=== PATIENT | male | born 1980 | race Caucasian/White ===

== ENCOUNTER → 2018-09-25 11:53 | Outpatient (CLI) | payer OTHER, SELFPAY ==
--- NOTE | 2018-09-25 11:55 | DI.RAD.S_ITS ---
PROCEDURE: XR CERVICAL SPINE 2V OR 3V INDICATIONS: neck pain TECHNIQUE: 4 view(s) of the cervical spine were acquired. COMPARISON: None. FINDINGS: Bones: No fractures or dislocations to the C7 level. The lateral masses of C1 appear intact on the odontoid view. No suspicious bony lesions. End plate spurring and sclerosis most notably at C5-C6. There is diffuse facet arthropathy. Mild narrowing of the C5-C6 disc space. Mild levocurvature. Soft tissues: No prevertebral soft tissue swelling. IMPRESSION: C5-C6 mild degeneration. Diffuse facet arthropathy. Trace levocurvature. Dictated by: Kody West M.D. on 09/25/2018 at 14:11 Approved by: Kody West M.D. on 09/25/2018 at 14:30
== END ==
PROVIDERS: PCP Family Medicine; Visit Provider Family Medicine
DX: M50.322 Other cervical disc degeneration at C5-C6 level (principal); M47.812 Spondylosis without myelopathy or radiculopathy, cervical region
CPT/HCPCS: 72040

== ENCOUNTER 2019-01-03 13:45 | Outpatient (RCR) | payer OTHER, SELFPAY ==
--- NOTE | 2018-10-30 18:57 | PT.OIE ---
Current Diagnoses Other spondylosis with radiculopathy, cervical region (10/30/18) Provider Visit Care Team Role Provider Type Other Providers Specialty: Address: Phone: Fax: Email: Guilherme Oro MD Attending Provider Physician Primary Care Provider Specialty: Family Practice Address: [address] [place] [address], [phone] Email: [email or web address] Physical Therapy Initial Evaluation PT-OP-A Visit Information Start: 10/29/18 16:25 Freq: Status: Active Protocol: Document 10/30/18 14:37 [facility] (Rec: 10/30/18 18:56 [facility] [id number]) Out-Patient Physical Therapy Visit Information Visit Information Visit Type Initial Evaluation Visit Start Time 14:35 Visit Stop Time 15:15 Total Visit Minutes 40 Visit Number 1/6 Number of POWDER BLENDER Visits 0 PT-OP-B Current Condition Start: 10/29/18 16:25 Freq: Status: Active Protocol: Document 10/30/18 14:37 [facility] (Rec: 10/30/18 15:20 [facility] [id number]) Current Condition History of Current Condition Onset Date Jul 2018 Current Complaints pins and needles in R thumb and post web space History of Current Condition Pt has history of neck pain with radicular pain in R arm in 2009 and did PT and had home traction unit. Pt has had occasional episodes since then that he could resolve with ibuprofen and traction. Pt reports it started back in July and is a little better now, but still has tingling. Pt has pain/tingling in shoulder and back of arm and skips the forearm and ends in the thumb. Pt reports shoulder feels fine now, thumb is the only place with residual pain for the past month. Pt rarely feels the pain in the neck but always feels it down arm. When the entire arm was hurting, he couldn't do a lot of physical activity. Pt reports he has returned to rec activities without aggrevation. Pt does not know why pain started again in July. Pt reports thumb tingling does not inc or dec with any activity. At this time, tingling is 1/10. Pain in arm prior to resolving of symptoms is 8/10. Prior Treatments and Tests Xrays last month here Treatment Goals Patient/Caregiver Goals dec thumb numbness ; home program to dec reoccurances PT-OP-C Subjective Start: 10/29/18 16:25 Freq: Status: Active Protocol: Document 10/30/18 14:37 [facility] (Rec: 10/30/18 15:20 [facility] [id number]) Patient Questionnaires Neck Disability Index NDI Score 6 Neck Disability Index Impairment 1 to 19% Impaired (Score 1-9) PT-OP-J Posture/Palpation/Skin Start: 10/29/18 16:25 Freq: Status: Active Protocol: Document 10/30/18 14:37 [facility] (Rec: 10/30/18 18:56 [facility] [id number]) Posture Evaluation Comments Posture Comments Fwd head & shoulders PT-OP-K Range of Motion Start: 10/29/18 16:25 Freq: Status: Active Protocol: Document 10/30/18 14:37 [facility] (Rec: 10/30/18 15:20 [facility] [id number]) Cervical Spine Range of Motion Cervical Spine Active Degrees Flexion 69 Extension 48 Rotation Left 68 Rotation Right 62 Lateral Flexion Left 45 Lateral Flexion Right 45 PT-OP-L Special Tests Start: 10/29/18 16:25 Freq: Status: Active Protocol: Document 10/30/18 14:37 [facility] (Rec: 10/30/18 15:20 [facility] [id number]) Special Tests Wrist/Hand Special Tests tinnels' Test Results neg Phalens Test Results neg Neural Special Tests- Upper Body Other- 1 Test Results Allens & modified wrights test negative Ulnar Nerve Tension Test Results neg Radial Nerve Tension Test Results neg Median Nerve Tension Test Results neg Upper Limb Tension Test Test Results neg PT-OP-M Strength Start: 10/29/18 16:25 Freq: Status: Active Protocol: Document 10/30/18 14:37 [facility] (Rec: 10/30/18 15:20 [facility] [id number]) Shoulder Strength Shoulder Manual Muscle Testing Right Flexion 4+ Good+ Extension 4+ Good+ Abduction (C5) 4 Good External Rotation 4- Good- Internal Rotation 4+ Good+ Left Reason Not Measured WFL Elbow/Forearm Strength Elbow and Forearm Manual Muscle Testing Left Flexion (C6) 5 Normal Extension (C7) 5 Normal Pronation 5 Normal Supination 5 Normal Right Flexion (C6) 5 Normal Extension (C7) 4+ Good+ Pronation 4 Good Supination 4 Good Comments pain R w/ext, pronation & supination Wrist Strength Wrist Manual Muscle Testing Right Flexion (C7) 4 Good Extension (C6) 4+ Good+ Ulnar Deviation 5 Normal Radial Deviation 4+ Good+ Left Flexion (C7) 5 Normal Extension (C6) 5 Normal Ulnar Deviation 5 Normal Radial Deviation 5 Normal PT-OP-Q Treatments Start: 10/29/18 16:25 Freq: Status: Active Protocol: Document 10/30/18 14:37 [facility] (Rec: 10/30/18 18:56 [facility] [id number]) Therapeutic Exercises Supine Exercises foam roll Supine Exercise Name HAbd, abd, flex Side bilateral Standing Exercises wall posture Standing Exercise Name w//90 ER Side bilateral PT-OP-T Assessment and Plan Start: 10/29/18 16:25 Freq: Status: Active Protocol: Document 10/30/18 14:37 [facility] (Rec: 10/30/18 18:56 [facility] [id number]) Physical Therapy Assessment Rehab Potential Rehabilitation Potential Excellent Evaluation Complexity Number of Personal Factors/Comorbidities 1-2 Number of Body Systems Impaired 4 or More Clinical Presentation at Evaluation Stable Impairments Impairments Pain ROM Sensation Strength Goals strength Short Term Goal (STG) Pt will be indep with HEP STG Duration 11/27/18 Insurance Checker Goal (LTG) Pt will have equal strength on R as L side for enitre UE, allowing greater ease with typical housework. LTG Duration 12/28/18 posture Insurance Checker Goal (LTG) Pt will present with good posture without cueing. LTG Duration 12/28/18 Assessment Summary Assessment Pt presents with paresthesia to R thumb with likely etiology from cervical radiculopathy based on prior history. At this time, pt does not have positive nerve tension tests, spurling test, and there are no movements that inc the pins & needle sensation. It is likely strength is reduced in R side d/t neural injury and pt would benefit from PT for strengthening, posture & neck ROM. Physical Therapy Plan Frequency and Duration Frequency of Treatment 1-2x/wk Duration of Treatment 2 months Plan of Care Start Date 10/30/18 Plan of Care End Date 12/28/18 Therapeutic Interventions Therapeutic Interventions Home Exercise Program Joint Mobilizations Manual Therapy Neuromuscular Re-education Self-Care/Home Management Soft Tissue Mobilization Taping Therapeutic Activities Therapeutic Exercises Modalities Cold Pack/Ice Massage Electric Stimulation Hot Packs Traction- Mechanical Ultrasound Next Visit Focus/Plan Next Note Type Treatment Note Next Visit Plan hand strengthening exercises, shoulder ext & ER ther ex, assess soft tissue mobility along median n path
--- NOTE | 2018-10-30 18:57 | PT.OPPOC ---
Current Diagnoses Other spondylosis with radiculopathy, cervical region (10/30/18) Provider Visit Care Team Role Provider Type Other Providers Specialty: Address: Phone: Fax: Email: Guilherme Oro MD Attending Provider Physician Primary Care Provider Specialty: Family Practice Address: [address] [place] [address], [address] Email: [email or web address] Plan Of Care PT-OP-T Assessment and Plan Start: 10/29/18 16:25 Freq: Status: Active Protocol: Document 10/30/18 14:37 [facility] (Rec: 10/30/18 18:56 [facility] [id number]) Physical Therapy Assessment Rehab Potential Rehabilitation Potential Excellent Evaluation Complexity Number of Personal Factors/Comorbidities 1-2 Number of Body Systems Impaired 4 or More Clinical Presentation at Evaluation Stable Impairments Impairments Pain ROM Sensation Strength Goals strength Short Term Goal (STG) Pt will be indep with HEP STG Duration 11/27/18 Penitentiary Goal (LTG) Pt will have equal strength on R as L side for enitre UE, allowing greater ease with typical housework. LTG Duration 12/28/18 posture Supervisor Typesetting Goal (LTG) Pt will present with good posture without cueing. LTG Duration 12/28/18 Assessment Summary Assessment Pt presents with paresthesia to R thumb with likely etiology from cervical radiculopathy based on prior history. At this time, pt does not have positive nerve tension tests, spurling test, and there are no movements that inc the pins & needle sensation. It is likely strength is reduced in R side d/t neural injury and pt would benefit from PT for strengthening, posture & neck ROM. Physical Therapy Plan Frequency and Duration Frequency of Treatment 1-2x/wk Duration of Treatment 2 months Plan of Care Start Date 10/30/18 Plan of Care End Date 12/28/18 Therapeutic Interventions Therapeutic Interventions Home Exercise Program Joint Mobilizations Manual Therapy Neuromuscular Re-education Self-Care/Home Management Soft Tissue Mobilization Taping Therapeutic Activities Therapeutic Exercises Modalities Cold Pack/Ice Massage Electric Stimulation Hot Packs Traction- Mechanical Ultrasound Next Visit Focus/Plan Next Note Type Treatment Note Next Visit Plan hand strengthening exercises, shoulder ext & ER ther ex, assess soft tissue mobility along median n path Plan of Care Dates Plan of Care Start Date 10/30/18 Plan of Care End Date 12/28/18 Please Sign and Return: I have reviewed this Plan of Care and certify that the skilled therapy services above are required to meet the patient?s needs. Physician Signature Date Printed Name and Credentials Clinical Instructor Signature Printed Name and Credentials
--- NOTE | 2019-01-03 14:23 | PT.OTN ---
Current Diagnoses Other spondylosis with radiculopathy, cervical region (01/03/19) Physical Therapy Treatment Note PT-OP-A Visit Information Start: 10/29/18 16:25 Freq: Status: Active Protocol: Document 01/03/19 13:45 [facility] (Rec: 01/03/19 14:23 [facility] [id number]) Out-Patient Physical Therapy Visit Information Visit Information Visit Type Treatment Note Visit Start Time 13:45 Visit Stop Time 14:15 Total Visit Minutes 30 Visit Number 2 Evaluation Information Evaluation Date 10/30/18 PT-OP-B Current Condition Start: 10/29/18 16:25 Freq: Status: Active Protocol: Document 10/30/18 14:37 [facility] (Rec: 10/30/18 15:20 [facility] [id number]) Current Condition History of Current Condition Onset Date Jul 2018 Current Complaints pins and needles in R thumb and post web space History of Current Condition Pt has history of neck pain with radicular pain in R arm in 2009 and did PT and had home traction unit. Pt has had occasional episodes since then that he could resolve with ibuprofen and traction. Pt reports it started back in July and is a little better now, but still has tingling. Pt has pain/tingling in shoulder and back of arm and skips the forearm and ends in the thumb. Pt reports shoulder feels fine now, thumb is the only place with residual pain for the past month. Pt rarely feels the pain in the neck but always feels it down arm. When the entire arm was hurting, he couldn't do a lot of physical activity. Pt reports he has returned to rec activities without aggrevation. Pt does not know why pain started again in July. Pt reports thumb tingling does not inc or dec with any activity. At this time, tingling is 1/10. Pain in arm prior to resolving of symptoms is 8/10. Prior Treatments and Tests Xrays last month here Treatment Goals Patient/Caregiver Goals dec thumb numbness ; home program to dec reoccurances PT-OP-C Subjective Start: 10/29/18 16:25 Freq: Status: Active Protocol: Document 01/03/19 13:45 [facility] (Rec: 01/03/19 14:23 [facility] [id number]) OP-PT Subjective Patient Comments Patient Comments Pt reports he is doing very well with his HEP, and has not had any flare-ups since his evaluation. Pt is interested in obtaining new HEP exercises . PT-OP-J Posture/Palpation/Skin Start: 10/29/18 16:25 Freq: Status: Active Protocol: Document 10/30/18 14:37 [facility] (Rec: 10/30/18 18:56 [facility] [id number]) Posture Evaluation Comments Posture Comments Fwd head & shoulders PT-OP-K Range of Motion Start: 10/29/18 16:25 Freq: Status: Active Protocol: Document 01/03/19 13:45 [facility] (Rec: 01/03/19 14:15 [facility] [id number]) Cervical Spine Range of Motion Cervical Spine Active Degrees Flexion 69 Extension 48 Rotation Left 74 Rotation Right 69 Lateral Flexion Left 45 Lateral Flexion Right 45 PT-OP-L Special Tests Start: 10/29/18 16:25 Freq: Status: Active Protocol: Document 10/30/18 14:37 [facility] (Rec: 10/30/18 15:20 [facility] [id number]) Special Tests Wrist/Hand Special Tests tinnels' Test Results neg Phalens Test Results neg Neural Special Tests- Upper Body Other- 1 Test Results Allens & modified wrights test negative Ulnar Nerve Tension Test Results neg Radial Nerve Tension Test Results neg Median Nerve Tension Test Results neg Upper Limb Tension Test Test Results neg PT-OP-M Strength Start: 10/29/18 16:25 Freq: Status: Active Protocol: Document 01/03/19 13:45 [facility] (Rec: 01/03/19 14:15 [facility] [id number]) Hand Shellfish Processing Laborer/Pinch Strength Hand Dominance Hand Dominance Mixed Hand Strength Right Shellfish Processing Laborer (lbs) 60 Left Shellfish Processing Laborer (lbs) 100 PT-OP-Q Treatments Start: 10/29/18 16:25 Freq: Status: Active Protocol: Document 01/03/19 13:45 [facility] (Rec: 01/03/19 14:23 [facility] [id number]) Therapeutic Exercises Supine Exercises Chin tuck Supine Exercise Name Chin Tuck Sitting Exercises Shellfish Processing Laborer Strengthening Sitting Exercise Name Full anger control counselor, individual finger anger control counselor, finger extension Resistance Blue Putty Scalene Stretch Sitting Exercise Name Mid-scalene stretch Upper Trap stretch Sitting Exercise Name Upper Trap stretch Standing Exercises Corner Stretch Standing Exercise Name Corner pec stretch PT-OP-T Assessment and Plan Start: 10/29/18 16:25 Freq: Status: Active Protocol: Document 01/03/19 13:45 [facility] (Rec: 01/03/19 14:23 [facility] [id number]) Physical Therapy Assessment Impairments Impairments Pain ROM Sensation Strength Goals strength Short Term Goal (STG) Pt will be indep with HEP STG Duration Met Policy Writer Sales Goal (LTG) Pt will have equal strength on R as L side for enitre UE, allowing greater ease with typical housework. LTG Duration 12/28/18 posture Policy Writer Sales Goal (LTG) Pt will present with good posture without cueing. LTG Duration Met Assessment Summary Assessment Pt presents today with continued R anger control counselor weakness, however still has minimal other positive tests or measures. Pt is willing to advance his HEP and continue independently, as there is not much indication for further skilled therapy at this time. Pt will be discharged, and will require a new referral in order to return for further appointments. Physical Therapy Plan Frequency and Duration Duration of Treatment 1 day Plan of Care Start Date 01/03/19 Plan of Care End Date 01/04/19 Therapeutic Interventions Therapeutic Interventions Home Exercise Program Joint Mobilizations Manual Therapy Neuromuscular Re-education Self-Care/Home Management Soft Tissue Mobilization Taping Therapeutic Activities Therapeutic Exercises Modalities Cold Pack/Ice Massage Electric Stimulation Hot Packs Traction- Mechanical Ultrasound Discharge Physical Therapy Discharge Comments Pt continuing HEP independently. Next Visit Focus/Plan Next Note Type Discharge Summary
--- NOTE | 2019-01-03 14:24 | PT.OPPOC ---
Current Diagnoses Other spondylosis with radiculopathy, cervical region (01/03/19) Provider Visit Care Team Role Provider Type Other Providers Specialty: Address: Phone: Fax: Email: Guilherme Oro MD Attending Provider Physician Primary Care Provider Specialty: Family Practice Address: [address] [place] [address], [phone] Email: [email or web address] Plan Of Care PT-OP-T Assessment and Plan Start: 10/29/18 16:25 Freq: Status: Active Protocol: Document 01/03/19 13:45 [facility] (Rec: 01/03/19 14:23 [facility] [id number]) Physical Therapy Assessment Impairments Impairments Pain ROM Sensation Strength Goals strength Short Term Goal (STG) Pt will be indep with HEP STG Duration Met Halfway Goal (LTG) Pt will have equal strength on R as L side for enitre UE, allowing greater ease with typical housework. LTG Duration 12/28/18 posture Halfway Goal (LTG) Pt will present with good posture without cueing. LTG Duration Met Assessment Summary Assessment Pt presents today with continued R fnp weakness, however still has minimal other positive tests or measures. Pt is willing to advance his HEP and continue independently, as there is not much indication for further skilled therapy at this time. Pt will be discharged, and will require a new referral in order to return for further appointments. Physical Therapy Plan Frequency and Duration Duration of Treatment 1 day Plan of Care Start Date 01/03/19 Plan of Care End Date 01/04/19 Therapeutic Interventions Therapeutic Interventions Home Exercise Program Joint Mobilizations Manual Therapy Neuromuscular Re-education Self-Care/Home Management Soft Tissue Mobilization Taping Therapeutic Activities Therapeutic Exercises Modalities Cold Pack/Ice Massage Electric Stimulation Hot Packs Traction- Mechanical Ultrasound Discharge Physical Therapy Discharge Comments Pt continuing HEP independently. Next Visit Focus/Plan Next Note Type Discharge Summary Plan of Care Dates Plan of Care Start Date 01/03/19 Plan of Care End Date 01/04/19 Please Sign and Return: I have reviewed this Plan of Care and certify that the skilled therapy services above are required to meet the patient?s needs. Physician Signature Date Printed Name and Credentials Clinical Instructor Signature Printed Name and Credentials
== END 2019-01-04 12:12 ==
LOC: PHYS 13:45
PROVIDERS: PCP Family Medicine; Visit Provider Family Medicine
DX: M47.22 Other spondylosis with radiculopathy, cervical region (principal)
CPT/HCPCS: 97110; 97140; 97161

== ENCOUNTER → 2020-03-23 10:53 | Outpatient (CLI) | payer OTHER, SELFPAY ==
[2020-03-23 11:41] LABS: Add Manual Diff / Slide Review NO; Basophils Absolute Auto 100 /uL (0-100); Basophils Percent Auto 0.6 % (0-2); Eosinophils Absolute Auto 300 /uL (0-450); Eosinophils Percent Auto 2.7 % (2-4); Hematocrit 46.2 % (41-53); Hemoglobin 16.4 g/dL (13.5-17.5); Lymphocytes Absolute Auto 3900 /uL (1100-4500); Lymphocytes Percent Auto 30.2 % (25-40); Mean Corpuscular HGB Conc 35.5 % (30-36); Mean Corpuscular Hemoglobin 29.5 PG (26-34); Monocytes Absolute Auto 1200 /uL (0-900); Monocytes Percent Auto 9.6 % (3-14); Neutrophils Absolute Auto 7400 /uL (1500-7000); Neutrophils Percent Auto 56.9 % (50-75); Platelet Count 221 X10^3/uL (150-400); Red Blood Cell Count 5.57 X10^6/uL (4.5-5.9); Red Cell Distribution Width 13.5 % (11.6-14.8)
[2020-03-23 11:52] LABS: Alanine Aminotransferase 35 IU/L (<50); Albumin 4.9 g/dL (3.5-5.0); Albumin Globulin Ratio 1.6 (1.0-2.8); Alkaline Phosphatase 69 U/L (38-126); Aspartate Aminotransferase 34 IU/L (17-59); BUN Creatinine Ratio 15.2 (6-22); Bilirubin Total 1.3 mg/dL (0.2-1.3); Blood Urea Nitrogen 14 mg/dL (9-20); Calcium 9.9 mg/dL (8.4-10.2); Carbon Dioxide 28 mmol/L (22-32); Chloride 103 mmol/L (98-107); Cholesterol 175 mg/dL (140-199); Estimated Glomerular Filt Rate > 60.0 mL/min (>60); Glucose 103 mg/dL (70-100); HDL Cholesterol 40 mg/dL (40-60); HEMOLYSIS < 15 (0-50); LDL Cholesterol Calculated 99 mg/dL (<100); Potassium 4.1 mmol/L (3.4-5.1); Sodium 141 mmol/L (137-145); Total Protein 7.9 g/dL (6.3-8.2); Triglycerides 178 mg/dL (35-150)
[2020-03-23 12:38] LABS: TSH w/ Reflex to FT4 2.63 uIU/mL (0.47-4.68)
== END ==
PROVIDERS: PCP Family Medicine; Referring Provider Family Medicine; Visit Provider Family Medicine
DX: F41.9 Anxiety disorder, unspecified (principal); I10 Essential (primary) hypertension
CPT/HCPCS: 36415; 80053; 80061; 84443; 85025

== ENCOUNTER 2021-11-23 06:52 | Emergency (ER) | payer OTHER, MEDICAID, SELFPAY ==
[2021-11-23] VITALS (46 sets, daily range): BP systolic 116–162; BP diastolic 61–103; PULSE 96–150; RESP 14–24; TEMP 35–36.3; O2SAT 90–99
--- NOTE | 2021-11-23 06:50 | DI.CT.S_ITS ---
PROCEDURE: CT ANGIO CHEST ABDOMEN PELVIS INDICATIONS: fall, head injury, leg pain, altered yesterday also TECHNIQUE: Precontrast 5 mm thick sections acquired from the lung apices to the iliac crests. After the administration of intravenous contrast, 2.5 mm thick sections again acquired from the lung apices to the iliac crests. Maximum intensity projection (MIP) oblique sagittal and coronal reformats were then acquired. For radiation dose reduction, the following was used: automated exposure control. COMPARISON: None. FINDINGS: Image quality: Excellent. AORTA: No areas of hemodynamically significant stenosis, vascular occlusion, aneurysmal dilation or dissection. CHEST: Lungs and pleura: No acute airspace opacities. No pleural effusions or pneumothorax. Central and peripheral airways are patent and normal in caliber. Mediastinum: Heart size is normal. No pericardial effusion. No mediastinal or hilar adenopathy by size criteria. Central pulmonary arteries are normal in size. Esophagus is normal in caliber. No hiatal hernias. Bones and chest wall: No axillary adenopathy by size criteria. Thyroid gland is unremarkable . No suspicious bony lesions. No vertebral body compression fractures. ABDOMEN: Vasculature: Celiac trunk and mesenteric arteries are patent. Renal arteries are also patent. Solid organs: Liver is enlarged measuring 20.1 cm, with steatosis. Gallbladder is unremarkable . Biliary system is non dilated. Pancreas enhances normally. Spleen is normal in size and enhancement. No adrenal nodules. Both kidneys are normal in size and enhancement, without hydronephrosis. Peritoneum and bowel: No free fluid or air. Bowel loops are normal in caliber and wall thickness. Colonic diverticula are present without associated inflammatory change. Mild hiatal hernia. Nodes and vessels: No retroperitoneal or mesenteric adenopathy by size criteria. Inferior vena cava is normal in morphology. Miscellaneous: Trace fat containing ventral hernia. PELVIS: Genitourinary: Bladder wall thickness is normal. Miscellaneous: No inguinal hernias or adenopathy. No ventral hernias. Bones: No suspicious bony lesions. There is a compression fracture measuring approximately 50% at L1. Fracture lucencies extend into the anterior, middle and posterior 3rd of the vertebral body. There is mild retropulsion of the posterior fragment causing severe spinal stenosis. In addition, there is a right transverse process fracture at this level. In addition, there is nondisplaced irregularity the right posterior 12th rib. IMPRESSION: Aorta demonstrates no areas of aneurysmal dilation, dissection or hemodynamically significant stenosis. Diverticulosis. Hepatomegaly with steatosis. 50% compression deformity at L1 including fractures within the anterior, middle and posterior 3rd of the vertebral body, as well as right transverse process fracture. There is mild retropulsion of the posterior aspect of the vertebral body causing severe spinal stenosis. Nondisplaced irregularity of posterior right 12th rib suspicious for fracture. Dictated by: Jillian Hammer M.D. on 11/23/2021 at 7:35 Approved by: Jillian Hammer M.D. on 11/23/2021 at 7:44
--- NOTE | 2021-11-23 06:51 | DI.CT.S_ITS ---
PROCEDURE: CT HEAD/BRAIN WO CON INDICATIONS: Trauma TECHNIQUE: Noncontrast 4.5 mm thick angled axial sections acquired from the foramen magnum to the vertex, with coronal and sagittal reformats. For radiation dose reduction, the following was used: automated exposure control, adjustment of mA and/or kV according to patient size. COMPARISON: None. FINDINGS: Image quality: Image degraded by moderate patient motion artifact. CSF spaces: Basal cisterns are patent. No extra-axial fluid collections. Ventricles are normal in size and shape. Brain: No midline shift. No intracranial masses or hemorrhage. Cruz-white matter interface is normal. Skull and face: Calvarium and visualized facial bones are intact, without suspicious lesions. Sinuses: Visualized sinuses and mastoids are clear. IMPRESSION: CT head without acute intracranial abnormalities. No acute calvarial fracture seen. Dictated by: Mingo Maria M.D. on 11/23/2021 at 7:44 Approved by: Mingo Maria M.D. on 11/23/2021 at 7:46
[2021-11-23] MEDS: MORPHINE 4 MG/ML INJ (07:00)
[2021-11-23 07:02] LABS: Add Manual Diff / Slide Review NO; Basophils Absolute Auto 0 /uL (0-100); Basophils Percent Auto 0.2 % (0-2); Eosinophils Absolute Auto 300 /uL (0-450); Eosinophils Percent Auto 1.2 % (2-4); Hematocrit 49.9 % (41-53); Hemoglobin 17.1 g/dL (13.5-17.5); Lymphocytes Absolute Auto 7700 /uL (1100-4500); Lymphocytes Percent Auto 35.6 % (25-40); Mean Corpuscular HGB Conc 34.2 % (30-36); Mean Corpuscular Hemoglobin 28.9 PG (26-34); Mean Corpuscular Volume 84.8 fL (80-100); Monocytes Absolute Auto 2200 /uL (0-900); Monocytes Percent Auto 10.3 % (3-14); Neutrophils Absolute Auto 11400 /uL (1500-7000); Neutrophils Percent Auto 52.7 % (50-75); Platelet Count 319 X10^3/uL (150-400); Red Blood Cell Count 5.89 X10^6/uL (4.5-5.9); Red Cell Distribution Width 14.2 % (11.6-14.8); White Blood Cell Count 21.6 X10^3/uL (4.5-11.0)
[2021-11-23] MEDS: KETAMINE 50 MG/5 ML *SYRINGE 200 MG IV (07:08)
[2021-11-23 07:10] LABS: Prothrombin Time 11.3 SECONDS (10.1-12.7)
[2021-11-23 07:13] LABS: PTT Partial Thromboplastin Tim 29 SECONDS (26.4-36.2)
[2021-11-23] MEDS: MIDAZOLAM 5 MG/ML VIAL (07:15)
[2021-11-23 07:16] LABS: Alanine Aminotransferase 42 IU/L (<50); Albumin 5.2 g/dL (3.5-5.0); Albumin Globulin Ratio 1.6 (1.0-2.8); Alkaline Phosphatase 71 U/L (38-126); Aspartate Aminotransferase 51 IU/L (17-59); BUN Creatinine Ratio 11.6 (6-22); Bilirubin Total 1.2 mg/dL (0.2-1.3); Blood Urea Nitrogen 13 mg/dL (9-20); Calcium 9.1 mg/dL (8.4-10.2); Carbon Dioxide 20 mmol/L (22-32); Chloride 105 mmol/L (98-107); Creatine Kinase 152 U/L (55-170); Estimated Glomerular Filt Rate > 60.0 mL/min (>60); Ethanol (ETOH) < 10 mg/dL; Globulin 3.2 g/dL (1.7-4.1); Glucose 139 mg/dL (70-100); Lipase 141 U/L (23-300); Potassium 4.1 mmol/L (3.4-5.1); Sodium 142 mmol/L (137-145); Total Protein 8.4 g/dL (6.3-8.2)
[2021-11-23 07:18] LABS: Lactate (Lactic Acid) 8.2 mmol/L (0.7-2.1)
--- NOTE | 2021-11-23 07:20 | ED.FALL ---
HPI - Fall General Chief Complaint: Fall Stated Complaint: fall with head injury Time Seen by Provider: 11/23/21 07:19 Source: EMS Mode of arrival: EMS History of Present Illness HPI Narrative: Patient is a 41-year-old healthy male presents with altered mental status. according to they just got back from a trip from [place] on November 11. He has been acting normal. 2 days ago he woke up he did not know where he was if he had a job are what was happening he was very confused. It was a brief moment but then he was back to normal. She said yesterday was a normal day. He has not been ill. This morning he woke up when she heard him fall in the shower. He was unresponsive unable to get to him because he was blocking the shower door. She called EMS. He became combative with EMS. EMS gave him fentanyl 50, ketamine 25,versed, he was able to calm down some however now in the emergency department grabbing his legs saying that his legs hurt. He is somewhat redirectable. Sweating diffusely, extremely agitated. Unable to provide any history. Related Data Home Medications Medication Instructions Recorded Confirmed No Known Home Medications 03/23/20 03/23/20 Allergies Allergy/AdvReac Type Severity Reaction Status Date / Time kiwi [KIWI] Allergy Severe THROAT Verified 03/23/20 10:11 SWELLS UP, ALMOST Penicillins [PENICILLINS] Allergy Severe HIVES Verified 03/23/20 10:11 Review of Systems Review of Systems ROS Unobtainable: Unobtainable due to medical condition Patient History Social History marital status: Smoking Status: Never smoker alcohol intake: current substance use type: does not use Smoking Status: Never smoker Exam Initial Vital Signs Initial Vital Signs: Vital Signs Pulse Rate 150 H 11/23/21 07:00 Respiratory Rate 22 11/23/21 07:00 Blood Pressure 146/96 H 11/23/21 07:00 Pulse Oximetry 96 11/23/21 07:00 GENERAL: Diaphoretic agitated male and grapping his legs HEENT: Head atraumatic,EOMI, pupils reactive, face symmetric, dry mucous membranes, minimal tongue breathing no laceration CARDIOVASCULAR: Regular rate and rhythm without murmurs, rubs or gallops. RESPIRATORY: Breath sounds equal bilaterally, no wheezes rales or rhonchi. ABDOMEN: Soft, nontender. Normoactive bowel sounds all 4 quadrants. No guarding or rebound. EXTREMITIES: Normal range of motion, no clubbing or edema. Neurovascularly intact. Calves are soft. Strong bilateral distal tibial pulses no obvious bony deformity NEUROLOGICAL: Moving all extremities face symmetric SKIN: Diaphoretic with petechiae around neck and chest Procedures Intubation Time out performed: Yes sedative: Etomidate Mg Given: 20 paralytic: Succinylcholine Mg Given: 150 Laryngoscope: other (glide scope) ET Tube Size: 7.5 Tube Secured Depth (cm): 26 Tube Secured Location: lips Tube Placement Confirmation: Visualized tube passing through cords, Equal breath sounds bilaterally, No breath sounds over epigastrium, Confirmation by capnometry and Chest Xray Patient Tolerated Procedure: Well and No complications Course Orders Ordered: ED Orders 11/23/21 06:50 CT angio chest abdomen pelvis Stat EKG-12 Lead Stat 11/23/21 06:51 CT head/brain wo con Stat 11/23/21 06:59 Complete Blood Count AUTO DIFF Stat Comprehensive Metabolic Panel Stat Ethanol (ETOH) Stat Lactate (Lactic Acid) Urgent Lipase Stat Partial Thromboplastin Time Stat Prothrombin Time INR Stat Troponin & CK Cardiac Panel Stat 11/23/21 07:25 Acetaminophen Stat Procalcitonin Stat Salicylate Stat 11/23/21 07:30 Prolactin Stat 11/23/21 07:31 US periph venous low extrem bi Stat 11/23/21 07:36 CT cervical spine wo con Stat 11/23/21 07:39 COVID19 -Nasal swab/Pre-Proc Stat 11/23/21 07:48 Blood Culture Stat 11/23/21 08:01 UA Complete [Urinalysis and Microscopic] Stat Urine Drug Screen, Rapid Stat 11/23/21 08:47 XR chest 1V Stat 11/23/21 08:55 Ventilator Order 11/23/21 09:40 ABG [Arterial Blood Gas] Stat Fentanyl (Fentanyl 100 Mcg/2 Ml Inj) 50 mcg IV Q30MIN PRN PRN Reason: agitation / pain Last Admin: 11/23/21 10:00 Dose: 50 mcg Documented by: Admin: 11/23/21 09:11 Dose: 50 mcg Documented by: JUAN Midazolam HCl 50 mg/ Dextrose 250 mls @ 11 mls/hr IV TITRATE [place]; Protocol Last Titration: 11/23/21 10:30 Dose: 0.05 mg/kg/hr, 27.5 mls/hr Documented by: Titration: 11/23/21 09:31 Dose: 0.05 mg/kg/hr, 27.5 mls/hr Documented by: Admin: 11/23/21 09:22 Dose: 0.02 mg/kg/hr, 11 mls/hr Documented by: JUAN Fentanyl 1,000 mcg/ Dextrose 250 mls @ 19.25 mls/hr IV TITRATE [place]; Protocol Last Titration: 11/23/21 10:31 Dose: 1 mcg/kg/hr, 27.5 mls/hr Documented by: Titration: 11/23/21 09:32 Dose: 1 mcg/kg/hr, 27.5 mls/hr Documented by: Admin: 11/23/21 09:26 Dose: 0.7 mcg/kg/hr, 19.25 mls/hr Documented by: JUAN Fentanyl 1,000 mcg/ Dextrose 270 mls @ 29.7 mls/hr IV TITRATE [place]; Protocol Last Admin: 11/23/21 09:24 Dose: Not Given Documented by: JUAN Midazolam HCl 50 mg/ Dextrose 250 mls @ 27.5 mls/hr IV TITRATE [place]; Protocol Last Admin: 11/23/21 09:27 Dose: Not Given Documented by: JUAN Sodium Chloride (Normal Saline 0.9%) 1,000 mls @ 150 mls/hr IV BOLUS ONE Stop: 11/23/21 16:13 Last Admin: 11/23/21 09:41 Dose: 150 mls/hr Documented by: JUAN Discontinued Medications Etomidate (Etomidate 2 Mg/Ml 10 Ml Vial) 20 mg IV NOW ONE Stop: 11/23/21 08:44 Last Admin: 11/23/21 08:43 Dose: 20 mg Documented by: JUAN Hydromorphone HCl (Hydromorphone 1 Mg Inj) 1 mg IV NOW ONE Stop: 11/23/21 08:17 Last Admin: 11/23/21 08:20 Dose: 1 mg Documented by: JUAN Sodium Chloride (Normal Saline 0.9%) 1,000 mls @ 1,000 mls/hr IV BOLUS ONE Stop: 11/23/21 08:18 Last Infusion: 11/23/21 09:33 Dose: 0 mls/hr Documented by: Admin: 11/23/21 07:23 Dose: 1,000 mls/hr Documented by: DINA Levetiracetam 1,000 mg/ Sodium (Chloride) 110 mls @ 440 mls/hr IV NOW ONE Stop: 11/23/21 08:00 Last Infusion: 11/23/21 08:27 Dose: 0 mls/hr Documented by: Admin: 11/23/21 08:07 Dose: 440 mls/hr Documented by: JUAN Sodium Chloride (Normal Saline 0.9%) 1,000 mls @ 1,000 mls/hr IV BOLUS ONE Stop: 11/23/21 08:59 Last Infusion: 11/23/21 10:30 Dose: 0 mls/hr Documented by: Admin: 11/23/21 09:16 Dose: 1,000 mls/hr Documented by: JUAN Ceftriaxone Sodium 2,000 mg/ (Sodium Chloride) 100 mls @ 200 mls/hr IV NOW ONE Stop: 11/23/21 09:15 Last Infusion: 11/23/21 10:15 Dose: 0 mls/hr Documented by: Admin: 11/23/21 09:43 Dose: 200 mls/hr Documented by: JUAN Acyclovir 1,000 mg/ Dextrose 250 mls @ 250 mls/hr IV NOW ONE Stop: 11/23/21 09:15 Last Infusion: 11/23/21 10:31 Dose: 0 mls/hr Documented by: Admin: 11/23/21 09:28 Dose: 250 mls/hr Documented by: JUAN Lorazepam (Lorazepam 2 Mg/Ml Inj) 2 mg IV NOW ONE Stop: 11/23/21 07:44 Last Admin: 11/23/21 07:43 Dose: 2 mg Documented by: JUAN Midazolam HCl (Midazolam 5 Mg/Ml Vial) 10 mg IV NOW ONE Stop: 11/23/21 08:18 Last Admin: 11/23/21 08:57 Dose: 10 mg Documented by: JUAN Succinylcholine Chloride (Succinylcholine 200 Mg/10 Ml Vial) 150 mg IV NOW ONE Stop: 11/23/21 08:47 Last Admin: 11/23/21 08:46 Dose: 150 mg Documented by: JUAN Vital Signs Vital signs: Vital Signs - 8 hr 11/23/21 07:00 11/23/21 07:18 11/23/21 07:22 Temperature Pulse Rate 150 H 100 H 101 H Respiratory Rate 22 Blood Pressure 146/96 H 128/89 Pulse Oximetry 96 90 L 11/23/21 07:30 11/23/21 07:35 11/23/21 07:40 Temperature Pulse Rate 96 H 104 H 105 H Respiratory Rate 24 Blood Pressure 128/93 H Pulse Oximetry 92 94 96 11/23/21 07:45 11/23/21 07:50 11/23/21 07:55 Temperature Pulse Rate 110 H 107 H 108 H Respiratory Rate Blood Pressure Pulse Oximetry 95 97 96 11/23/21 08:00 11/23/21 08:01 11/23/21 08:05 Temperature Pulse Rate 103 H 105 H 104 H Respiratory Rate Blood Pressure 159/76 H 162/78 H Pulse Oximetry 94 96 96 11/23/21 08:10 11/23/21 08:15 11/23/21 08:20 Temperature Pulse Rate 104 H 109 H 114 H Respiratory Rate Blood Pressure Pulse Oximetry 97 96 97 11/23/21 08:25 11/23/21 08:30 11/23/21 08:31 Temperature Pulse Rate 101 H 108 H 105 H Respiratory Rate Blood Pressure 157/100 H Pulse Oximetry 95 97 96 11/23/21 08:35 11/23/21 08:40 11/23/21 08:45 Temperature Pulse Rate 113 H 106 H 105 H Respiratory Rate Blood Pressure 148/102 H 140/84 130/78 Pulse Oximetry 97 96 98 11/23/21 08:48 11/23/21 08:49 11/23/21 08:50 Temperature Pulse Rate 107 H 108 H 108 H Respiratory Rate Blood Pressure 134/85 140/87 136/84 Pulse Oximetry 97 98 99 11/23/21 08:55 11/23/21 08:58 11/23/21 09:00 Temperature Pulse Rate 107 H 109 H 105 H Respiratory Rate Blood Pressure 138/81 161/103 H Pulse Oximetry 98 98 98 11/23/21 09:01 11/23/21 09:05 11/23/21 09:10 Temperature 95.0 F L Pulse Rate 106 H 105 H 107 H Respiratory Rate Blood Pressure 148/86 H 145/86 H 118/84 Pulse Oximetry 98 98 98 11/23/21 09:15 11/23/21 09:20 11/23/21 09:25 Temperature 96.4 F L 97.0 F L 97.2 F L Pulse Rate 106 H 106 H 105 H Respiratory Rate Blood Pressure 126/87 129/86 123/81 Pulse Oximetry 97 97 97 11/23/21 09:30 11/23/21 09:35 11/23/21 09:40 Temperature 97.3 F L 97.3 F L 97.3 F L Pulse Rate 104 H 104 H 105 H Respiratory Rate 23 18 Blood Pressure 128/83 127/81 Pulse Oximetry 96 95 94 11/23/21 09:45 11/23/21 09:50 11/23/21 09:55 Temperature 97.3 F L 97.3 F L 97.3 F L Pulse Rate 108 H 110 H 109 H Respiratory Rate 16 16 14 Blood Pressure 130/84 120/76 116/75 Pulse Oximetry 94 95 95 11/23/21 10:00 11/23/21 10:05 11/23/21 10:10 Temperature 97.3 F L 97.3 F L 97.2 F L Pulse Rate 111 H 114 H 115 H Respiratory Rate 15 16 16 Blood Pressure 117/61 125/67 Pulse Oximetry 95 95 11/23/21 10:15 11/23/21 10:20 11/23/21 10:25 Temperature 97.2 F L 97.2 F L 97.0 F L Pulse Rate 116 H 117 H Respiratory Rate 16 16 Blood Pressure Pulse Oximetry 11/23/21 10:30 Temperature 97.2 F L Pulse Rate Respiratory Rate Blood Pressure Pulse Oximetry MDM - Fall Lab Data Result diagrams: 11/23/21 06:59 11/23/21 06:59 Labs: Lab Results 11/23/21 11/23/21 11/23/21 Range/Units 06:59 06:59 06:59 WBC 21.6 H (4.5-11.0) X10^3/uL RBC 5.89 (4.5-5.9) X10^6/uL Hgb 17.1 (13.5-17.5) g/dL Hct 49.9 (41-53) % MCV 84.8 (80-100) fL MCH 28.9 (26-34) PG MCHC 34.2 (30-36) % RDW 14.2 (11.6-14.8) % Plt Count 319 (150-400) X10^3/uL Neut % (Auto) 52.7 (50-75) % Lymph % (Auto) 35.6 (25-40) % [place] % (Auto) 10.3 (3-14) % Eos % (Auto) 1.2 L (2-4) % Baso % (Auto) 0.2 (0-2) % Neut # (Auto) 54033 H (2340-2486) /uL Lymph # (Auto) 7700 H (2264-9951) /uL [place] # (Auto) 2200 H (0-900) /uL Eos # (Auto) 300 (0-450) /uL Baso # (Auto) 0 (0-100) /uL PT 11.3 (10.1-12.7) SECONDS INR 1.0 (0.9-1.3) APTT 29 (26.4-36.2) SECONDS ABG pH (7.35-7.45) ABG pCO2 (35-45) mmHg ABG pO2 (80-100) mmHg ABG HCO3 (22-26) mmol/L ABG Total CO2 (21-31) mmol/L ABG O2 Saturation (95-100) % ABG Base Excess (-2-2) mmol/L FiO2 Sodium 142 (137-145) mmol/L Potassium 4.1 (3.4-5.1) mmol/L Chloride 105 (98-107) mmol/L Carbon Dioxide 20 L (22-32) mmol/L BUN 13 (9-20) mg/dL Creatinine 1.12 (0.66-1.25) mg/dL Estimated GFR > 60.0 (>60) mL/min BUN/Creatinine Ratio 11.6 (6-22) Glucose 139 H (70-100) mg/dL Lactate (0.7-2.1) mmol/L Calcium 9.1 (8.4-10.2) mg/dL Total Bilirubin 1.2 (0.2-1.3) mg/dL AST 51 (17-59) IU/L ALT 42 (<50) IU/L Alkaline Phosphatase 71 (38-126) U/L Total Creatine Kinase 152 (55-170) U/L CK-MB (CK-2) 1.72 (<2.37) ng/mL CK-MB (CK-2) Rel Index 1.1 L (1.5-5.0) % Troponin I < 0.012 (0.01-0.034) ng/mL Total Protein 8.4 H (6.3-8.2) g/dL Albumin 5.2 H (3.5-5.0) g/dL Globulin 3.2 (1.7-4.1) g/dL Albumin/Globulin Ratio 1.6 (1.0-2.8) Lipase 141 (23-300) U/L Procalcitonin (<0.5) ng/mL Prolactin (3.7-17.9) ng/mL Urine Color Urine Appearance Urine pH (4.5-8.0) Ur Specific [place] (1.000-1.035) Urine Protein (Negative) Urine Glucose (UA) (Negative) g/dL Urine Ketones (NEGATIVE) Urine Occult Blood (Negative) Urine Nitrate (Negative) Urine Bilirubin (NEGATIVE) Urine Urobilinogen (0.2) E.U./dL Ur Leukocyte Esterase (NEGATIVE) Urine RBC (0-5/HPF) Urine WBC (0-5/HPF) Urine Bacteria (None) Hyaline Casts (None) Ur Culture Indicated? Salicylates (<20) mg/dL U Opiates 300ng/mL cut (Negative) Ur Oxycodone Screen (Negative) Urine Methadone Screen (Negative) Acetaminophen (10-30) ug/mL Ur Barbiturates Screen (Negative) U Tricyclic Antidepress (Negative) Ur Phencyclidine Scrn (Negative) Ur Amphetamines Screen (Negative) U Methamphetamines Scrn (Negative) Ur MDMA Scrn (Ecstasy) (Negative) U Benzodiazepines Scrn (Negative) Urine Cocaine Screen (Negative) U Marijuana (THC) Screen (Negative) Ethyl Alcohol < 10 ( - 10) mg/dL SARS-CoV-2 (PCR) (Negative) 11/23/21 11/23/21 11/23/21 Range/Units 06:59 07:25 07:25 WBC (4.5-11.0) X10^3/uL RBC (4.5-5.9) X10^6/uL Hgb (13.5-17.5) g/dL Hct (41-53) % MCV (80-100) fL MCH (26-34) PG MCHC (30-36) % RDW (11.6-14.8) % Plt Count (150-400) X10^3/uL Neut % (Auto) (50-75) % Lymph % (Auto) (25-40) % [place] % (Auto) (3-14) % Eos % (Auto) (2-4) % Baso % (Auto) (0-2) % Neut # (Auto) (7727-0566) /uL Lymph # (Auto) (6450-0783) /uL [place] # (Auto) (0-900) /uL Eos # (Auto) (0-450) /uL Baso # (Auto) (0-100) /uL PT (10.1-12.7) SECONDS INR (0.9-1.3) APTT (26.4-36.2) SECONDS ABG pH (7.35-7.45) ABG pCO2 (35-45) mmHg ABG pO2 (80-100) mmHg ABG HCO3 (22-26) mmol/L ABG Total CO2 (21-31) mmol/L ABG O2 Saturation (95-100) % ABG Base Excess (-2-2) mmol/L FiO2 Sodium (137-145) mmol/L Potassium (3.4-5.1) mmol/L Chloride (98-107) mmol/L Carbon Dioxide (22-32) mmol/L BUN (9-20) mg/dL Creatinine (0.66-1.25) mg/dL Estimated GFR (>60) mL/min BUN/Creatinine Ratio (6-22) Glucose (70-100) mg/dL Lactate 8.2 H* (0.7-2.1) mmol/L Calcium (8.4-10.2) mg/dL Total Bilirubin (0.2-1.3) mg/dL AST (17-59) IU/L ALT (<50) IU/L Alkaline Phosphatase (38-126) U/L Total Creatine Kinase (55-170) U/L CK-MB (CK-2) (<2.37) ng/mL CK-MB (CK-2) Rel Index (1.5-5.0) % Troponin I (0.01-0.034) ng/mL Total Protein (6.3-8.2) g/dL Albumin (3.5-5.0) g/dL Globulin (1.7-4.1) g/dL Albumin/Globulin Ratio (1.0-2.8) Lipase (23-300) U/L Procalcitonin 0.04 (<0.5) ng/mL Prolactin (3.7-17.9) ng/mL Urine Color Urine Appearance Urine pH (4.5-8.0) Ur Specific [place] (1.000-1.035) Urine Protein (Negative) Urine Glucose (UA) (Negative) g/dL Urine Ketones (NEGATIVE) Urine Occult Blood (Negative) Urine Nitrate (Negative) Urine Bilirubin (NEGATIVE) Urine Urobilinogen (0.2) E.U./dL Ur Leukocyte Esterase (NEGATIVE) Urine RBC (0-5/HPF) Urine WBC (0-5/HPF) Urine Bacteria (None) Hyaline Casts (None) Ur Culture Indicated? Salicylates < 1.0 (<20) mg/dL U Opiates 300ng/mL cut (Negative) Ur Oxycodone Screen (Negative) Urine Methadone Screen (Negative) Acetaminophen < 10 L (10-30) ug/mL Ur Barbiturates Screen (Negative) U Tricyclic Antidepress (Negative) Ur Phencyclidine Scrn (Negative) Ur Amphetamines Screen (Negative) U Methamphetamines Scrn (Negative) Ur MDMA Scrn (Ecstasy) (Negative) U Benzodiazepines Scrn (Negative) Urine Cocaine Screen (Negative) U Marijuana (THC) Screen (Negative) Ethyl Alcohol ( - 10) mg/dL SARS-CoV-2 (PCR) (Negative) 11/23/21 11/23/21 11/23/21 Range/Units 07:30 07:39 08:01 WBC (4.5-11.0) X10^3/uL RBC (4.5-5.9) X10^6/uL Hgb (13.5-17.5) g/dL Hct (41-53) % MCV (80-100) fL MCH (26-34) PG MCHC (30-36) % RDW (11.6-14.8) % Plt Count (150-400) X10^3/uL Neut % (Auto) (50-75) % Lymph % (Auto) (25-40) % [place] % (Auto) (3-14) % Eos % (Auto) (2-4) % Baso % (Auto) (0-2) % Neut # (Auto) (1948-4165) /uL Lymph # (Auto) (4936-1478) /uL [place] # (Auto) (0-900) /uL Eos # (Auto) (0-450) /uL Baso # (Auto) (0-100) /uL PT (10.1-12.7) SECONDS INR (0.9-1.3) APTT (26.4-36.2) SECONDS ABG pH (7.35-7.45) ABG pCO2 (35-45) mmHg ABG pO2 (80-100) mmHg ABG HCO3 (22-26) mmol/L ABG Total CO2 (21-31) mmol/L ABG O2 Saturation (95-100) % ABG Base Excess (-2-2) mmol/L FiO2 Sodium (137-145) mmol/L Potassium (3.4-5.1) mmol/L Chloride (98-107) mmol/L Carbon Dioxide (22-32) mmol/L BUN (9-20) mg/dL Creatinine (0.66-1.25) mg/dL Estimated GFR (>60) mL/min BUN/Creatinine Ratio (6-22) Glucose (70-100) mg/dL Lactate (0.7-2.1) mmol/L Calcium (8.4-10.2) mg/dL Total Bilirubin (0.2-1.3) mg/dL AST (17-59) IU/L ALT (<50) IU/L Alkaline Phosphatase (38-126) U/L Total Creatine Kinase (55-170) U/L CK-MB (CK-2) (<2.37) ng/mL CK-MB (CK-2) Rel Index (1.5-5.0) % Troponin I (0.01-0.034) ng/mL Total Protein (6.3-8.2) g/dL Albumin (3.5-5.0) g/dL Globulin (1.7-4.1) g/dL Albumin/Globulin Ratio (1.0-2.8) Lipase (23-300) U/L Procalcitonin (<0.5) ng/mL Prolactin 46.9 H (3.7-17.9) ng/mL Urine Color Urine Appearance Urine pH (4.5-8.0) Ur Specific [place] (1.000-1.035) Urine Protein (Negative) Urine Glucose (UA) (Negative) g/dL Urine Ketones (NEGATIVE) Urine Occult Blood (Negative) Urine Nitrate (Negative) Urine Bilirubin (NEGATIVE) Urine Urobilinogen (0.2) E.U./dL Ur Leukocyte Esterase (NEGATIVE) Urine RBC (0-5/HPF) Urine WBC (0-5/HPF) Urine Bacteria (None) Hyaline Casts (None) Ur Culture Indicated? Salicylates (<20) mg/dL U Opiates 300ng/mL cut Positive H (Negative) Ur Oxycodone Screen Negative (Negative) Urine Methadone Screen Negative (Negative) Acetaminophen (10-30) ug/mL Ur Barbiturates Screen Negative (Negative) U Tricyclic Antidepress Negative (Negative) Ur Phencyclidine Scrn Negative (Negative) Ur Amphetamines Screen Negative (Negative) U Methamphetamines Scrn Negative (Negative) Ur MDMA Scrn (Ecstasy) Negative (Negative) U Benzodiazepines Scrn Negative (Negative) Urine Cocaine Screen Negative (Negative) U Marijuana (THC) Screen Negative (Negative) Ethyl Alcohol ( - 10) mg/dL SARS-CoV-2 (PCR) Negative (Negative) 11/23/21 11/23/21 11/23/21 Range/Units 08:01 09:25 09:40 WBC (4.5-11.0) X10^3/uL RBC (4.5-5.9) X10^6/uL Hgb (13.5-17.5) g/dL Hct (41-53) % MCV (80-100) fL MCH (26-34) PG MCHC (30-36) % RDW (11.6-14.8) % Plt Count (150-400) X10^3/uL Neut % (Auto) (50-75) % Lymph % (Auto) (25-40) % [place] % (Auto) (3-14) % Eos % (Auto) (2-4) % Baso % (Auto) (0-2) % Neut # (Auto) (3977-9622) /uL Lymph # (Auto) (0990-7956) /uL [place] # (Auto) (0-900) /uL Eos # (Auto) (0-450) /uL Baso # (Auto) (0-100) /uL PT (10.1-12.7) SECONDS INR (0.9-1.3) APTT (26.4-36.2) SECONDS ABG pH 7.27 L* (7.35-7.45) ABG pCO2 52.7 H (35-45) mmHg ABG pO2 83 (80-100) mmHg ABG HCO3 24 (22-26) mmol/L ABG Total CO2 25 (21-31) mmol/L ABG O2 Saturation 94 L (95-100) % ABG Base Excess -3.0 L (-2-2) mmol/L FiO2 30 Sodium (137-145) mmol/L Potassium (3.4-5.1) mmol/L Chloride (98-107) mmol/L Carbon Dioxide (22-32) mmol/L BUN (9-20) mg/dL Creatinine (0.66-1.25) mg/dL Estimated GFR (>60) mL/min BUN/Creatinine Ratio (6-22) Glucose (70-100) mg/dL Lactate 1.8 (0.7-2.1) mmol/L Calcium (8.4-10.2) mg/dL Total Bilirubin (0.2-1.3) mg/dL AST (17-59) IU/L ALT (<50) IU/L Alkaline Phosphatase (38-126) U/L Total Creatine Kinase (55-170) U/L CK-MB (CK-2) (<2.37) ng/mL CK-MB (CK-2) Rel Index (1.5-5.0) % Troponin I (0.01-0.034) ng/mL Total Protein (6.3-8.2) g/dL Albumin (3.5-5.0) g/dL Globulin (1.7-4.1) g/dL Albumin/Globulin Ratio (1.0-2.8) Lipase (23-300) U/L Procalcitonin (<0.5) ng/mL Prolactin (3.7-17.9) ng/mL Urine Color Yellow Urine Appearance Clear Urine pH 5.0 (4.5-8.0) Ur Specific [place] >=1.030 H (1.000-1.035) Urine Protein 3+ H (Negative) Urine Glucose (UA) Negative (Negative) g/dL Urine Ketones Trace H (NEGATIVE) Urine Occult Blood 3+ H (Negative) Urine Nitrate Negative (Negative) Urine Bilirubin Negative (NEGATIVE) Urine Urobilinogen 0.2 (0.2) E.U./dL Ur Leukocyte Esterase Negative (NEGATIVE) Urine RBC 5-10/hpf H (0-5/HPF) Urine WBC None seen (0-5/HPF) Urine Bacteria None seen (None) Hyaline Casts 5-10/lpf (None) Ur Culture Indicated? Cult not indicated Salicylates (<20) mg/dL U Opiates 300ng/mL cut (Negative) Ur Oxycodone Screen (Negative) Urine Methadone Screen (Negative) Acetaminophen (10-30) ug/mL Ur Barbiturates Screen (Negative) U Tricyclic Antidepress (Negative) Ur Phencyclidine Scrn (Negative) Ur Amphetamines Screen (Negative) U Methamphetamines Scrn (Negative) Ur MDMA Scrn (Ecstasy) (Negative) U Benzodiazepines Scrn (Negative) Urine Cocaine Screen (Negative) U Marijuana (THC) Screen (Negative) Ethyl Alcohol ( - 10) mg/dL SARS-CoV-2 (PCR) (Negative) Imaging Data CT scan - head: Radiologist's Impression: PROCEDURE:? CT HEAD/BRAIN WO CON ? INDICATIONS:? Trauma ? TECHNIQUE:? Noncontrast 4.5 mm thick angled axial sections acquired from the foramen magnum to the vertex, with coronal and sagittal reformats.? For radiation dose reduction, the following was used:? automated exposure control, adjustment of mA and/or kV according to patient size.? ? COMPARISON:? None. ? FINDINGS:? Image quality:? Image degraded by moderate patient motion artifact. ? CSF spaces:? Basal cisterns are patent.? No extra-axial fluid collections.? Ventricles are normal in size and shape.? ? Brain:? No midline shift.? No intracranial masses or hemorrhage.? Cruz-white matter interface is normal.? ? Skull and face:? Calvarium and visualized facial bones are intact, without suspicious lesions.? ? Sinuses:? Visualized sinuses and mastoids are clear.? ? IMPRESSION:? CT head without acute intracranial abnormalities.? No acute calvarial fracture seen. ? ? Dictated by: Mingo Maria M.D. on 11/23/2021 at 7:44 ? ? CT - cervical spine: Radiologist's Impression: PROCEDURE:? CT CERVICAL SPINE WO CON ? INDICATIONS:? Trauma ? TECHNIQUE:? Noncontrast 3 mm thick sections acquired from the skull base to the T4 level.? Sagittal and coronal reformats were then constructed.? For radiation dose reduction, the following was used:? automated exposure control, adjustment of mA and/or kV according to patient size.? ? COMPARISON:? None. ? FINDINGS:? Image quality:? Image degraded by moderate patient motion artifact. ? Bones:? No acute fractures or dislocations.? No acute compression fractures of the vertebral bodies. Craniocervical junction is intact. C1-C2 relationship is preserved. Visualized superior ribs are intact.? Multilevel cervical spondylosis most prominent at C5-6.? No significant spinal canal stenosis identified. ? Soft tissues:? Prevertebral soft tissues are normal in thickness.? No paravertebral hematomas.? No apical pneumothoraces.? ? ? IMPRESSION:? CT cervical spine without acute fracture or traumatic malalignment.? Mild multilevel cervical spondylosis most pronounced at C5-6. ? ? ? Dictated by: Mingo Maria M.D. on 11/23/2021 at 7:46 ? ? CT scan - abdomen/pelvis: Radiologist's Impression: PROCEDURE:? CT ANGIO CHEST ABDOMEN PELVIS ? INDICATIONS:? fall, head injury, leg pain, altered yesterday also ? TECHNIQUE:? Precontrast 5 mm thick sections acquired from the lung apices to the iliac crests.? After the administration of intravenous contrast, 2.5 mm thick sections again acquired from the lung apices to the iliac crests.? Maximum intensity projection (MIP) oblique sagittal and coronal reformats were then acquired.? For radiation dose reduction, the following was used:? automated exposure control.? ? COMPARISON:? None. ? FINDINGS:? Image quality:? Excellent.? ? AORTA:? No areas of hemodynamically significant stenosis, vascular occlusion, aneurysmal dilation or dissection. ? CHEST:? Lungs and pleura:? No acute airspace opacities.? No pleural effusions or pneumothorax.? Central and peripheral airways are patent and normal in caliber.? ? Mediastinum:? Heart size is normal.? No pericardial effusion.? No mediastinal or hilar adenopathy by size criteria.? Central pulmonary arteries are normal in size.? Esophagus is normal in caliber.? No hiatal hernias.? ? Bones and chest wall:? No axillary adenopathy by size criteria.? Thyroid gland is unremarkable .? No suspicious bony lesions.? No vertebral body compression fractures.? ? ? ABDOMEN:? Vasculature:? Celiac trunk and mesenteric arteries are patent.? Renal arteries are also patent.? ? Solid organs:? Liver is enlarged measuring 20.1 cm, with steatosis.? Gallbladder is unremarkable .? Biliary system is non dilated.? Pancreas enhances normally.? Spleen is normal in size and enhancement.? No adrenal nodules.? Both kidneys are normal in size and enhancement, without hydronephrosis.? ? Peritoneum and bowel:? No free fluid or air.? Bowel loops are normal in caliber and wall thickness.? Colonic diverticula are present without associated inflammatory change.? Mild hiatal hernia. ? Nodes and vessels:? No retroperitoneal or mesenteric adenopathy by size criteria.? Inferior vena cava is normal in morphology.? ? Miscellaneous:? Trace fat containing ventral hernia. ? ? PELVIS:? Genitourinary:? Bladder wall thickness is normal.? ? Miscellaneous:? No inguinal hernias or adenopathy.? No ventral hernias.? ? Bones:? No suspicious bony lesions.? There is a compression fracture measuring approximately 50% at L1.? Fracture lucencies extend into the anterior, middle and posterior 3rd of the vertebral body.? There is mild retropulsion of the posterior fragment causing severe spinal stenosis.? In addition, there is a right transverse process fracture at this level.? In addition, there is nondisplaced irregularity the right posterior 12th rib. ? ? IMPRESSION:? ? Aorta demonstrates no areas of aneurysmal dilation, dissection or hemodynamically significant stenosis. ? Diverticulosis. ? Hepatomegaly with steatosis. ? 50% compression deformity at L1 including fractures within the anterior, middle and posterior 3rd of the vertebral body, as well as right transverse process fracture.? There is mild retropulsion of the posterior aspect of the vertebral body causing severe spinal stenosis. ? Nondisplaced irregularity of posterior right 12th rib suspicious for fracture. ? Dictated by: Jillian Hammer M.D. on 11/23/2021 at 7:35 ? ? US - DVT: Radiologist's Impression: PROCEDURE:? US PERIPH VENOUS LOW EXTREM BI ? INDICATIONS:? PAIN ? TECHNIQUE:? Real-time imaging, as well as color and pulse Doppler interrogation, were performed of the deep veins of both legs from the inguinal ligament to the popliteal fossa.? ? COMPARISON:? None. ? FINDINGS:? ? Right: The common femoral, femoral and popliteal veins are normally compressible, and free of intraluminal thrombus.? Color and pulse Doppler demonstrate normal phasic intravascular flow.? There is normal augmentation response to distal compression maneuver.? ? Left: The common femoral, femoral and popliteal veins are normally compressible, and free of intraluminal thrombus.? Color and pulse Doppler demonstrate normal phasic intravascular flow.? There is normal augmentation response to distal compression maneuver.? ? ? IMPRESSION:? No evidence of DVT. ? ? Dictated by: Jeremy Olson M.D. on 11/23/2021 at 8:45? Chest x-ray: Radiologist's Impression: PROCEDURE:? XR CHEST 1V ? INDICATIONS:? POST INTUBATION ER ? TECHNIQUE:? One view of the chest was acquired.? ? COMPARISON:? [facility], , CHEST 2 VIEW, 12/25/2016, 15:33. ? FINDINGS:? ? Surgical changes and devices:? Interval placement of an endotracheal tube, which projects 4 cm from the pipo ? Lungs and pleura:? Reduced lung volumes.? Bilateral, predominantly upper lung zone airspace opacities.? No pleural effusions or pneumothorax.? ? Mediastinum:? Prominence of the cardiac silhouette, exaggerated by technique.? ? Bones and chest wall:? No suspicious bony lesions.? Overlying soft tissues appear unremarkable.? ? IMPRESSION:? Endotracheal tube in situ as detailed above. ? ? Dictated by: Jeremy Olson M.D. on 11/23/2021 at 9:09 ? ? ECG Data Interpretation: Normal sinus rhythm rate 102 GA interval 208 QRS [address] changes MDM Narrative Medical decision making narrative: Patient is extremely agitated bending both knees rubbing his legs complaining of pain in his shins. He has good strong distal pedal pulses. CT angio does confirm an L1 compression fracture with spinal cord intrusion. No obvious neuro deficit but may be having some nerve pain. He is extremely agitated requiring multiple doses of Ativan Versed fentanyl Dilaudid, ketamine none of which seem to keep him sedated. He is very agitated not redirectable. For this reason he is intubated. He at no time was hypoxic. It seemed a patient may have been postictal 2 days ago when he was very confused. Patient has an elevated prolactin and elevated lactic acid today which point to new onset seizure. His head CT was negative for any bleeding or masses. He does have leukocytosis of 21 which may be stress versus infection however he is afebrile and states that he was in normal health yesterday. Lactic acid is extremely elevated head 8.2. Possibly from severe agitation versus seizure versus sepsis. He is covered with Rocephin and acyclovir for possible cephalitis and meningitis. He does have some mild petechiae around his chest and neck possibly from seizure and hypoxia versus meningitis. Patient had lower extremity ultrasound because he was complaining of leg pain and recently got back from a trip. Unclear why patient had new onset seizure. states that he did drink 2 glasses of wine last night not is not out of normal for him as far she knows he is not off alcoholic his alcohol level is negative today. He is not take any medications except for occasional Zyrtec. Head CT was negative for bleeding stroke or mass will likely require an MRI. Drug screen is positive for opiates but possibly from the medication we have given him. He certainly has no signs of respiratory depression. [id number]-Dr. Mendoza [facility] ED physician is updated on patient's symptoms and test results. At this time she accepts patient for transfer Critical Care Time Critical Care Time Critical Care Time: Yes Total Critical Care Time: 75 Attestation: The high probability of a clinically significant, sudden or life threatening deterioration of the neurovascular system(s) required my full and direct attention, intervention and personal management. The aggregate critical care time was 75 minutes. This time is in addition to time spent performing reported procedures but includes the following: [x] Data Review and interpretation [x] Patient assessment and monitoring of vital signs [x] Documentation [x] Medication orders and management Discharge Plan Departure Patient Disposition: [facility] Clinical Impression: New onset seizure, Closed compression fracture of L1 vertebra Prescriptions: No Action No Known Home Medications 0RF
[2021-11-23] MEDS: SODIUM CHLORIDE 0.9% 1,000 ML 1000 ML IV ×2 (07:23→09:16)
[2021-11-23] MEDS: fentaNYL 100 MCG/2 ML INJ (07:24)
[2021-11-23 07:27] LABS: Troponin I < 0.012 ng/mL (0.01-0.034)
[2021-11-23 07:31] LABS: CKMB % Relative Index 1.1 % (1.5-5.0); Creatine Kinase MB 1.72 ng/mL (<2.37); HEMOLYSIS 63 (0-50)
--- NOTE | 2021-11-23 07:31 | DI.US.S_ITS ---
PROCEDURE: US PERIPH VENOUS LOW EXTREM BI INDICATIONS: PAIN TECHNIQUE: Real-time imaging, as well as color and pulse Doppler interrogation, were performed of the deep veins of both legs from the inguinal ligament to the popliteal fossa. COMPARISON: None. FINDINGS: Right: The common femoral, femoral and popliteal veins are normally compressible, and free of intraluminal thrombus. Color and pulse Doppler demonstrate normal phasic intravascular flow. There is normal augmentation response to distal compression maneuver. Left: The common femoral, femoral and popliteal veins are normally compressible, and free of intraluminal thrombus. Color and pulse Doppler demonstrate normal phasic intravascular flow. There is normal augmentation response to distal compression maneuver. IMPRESSION: No evidence of DVT. Dictated by: Jeremy Olson M.D. on 11/23/2021 at 8:45 Approved by: Jeremy Olson M.D. on 11/23/2021 at 8:45
[2021-11-23 07:34] LABS: Acetaminophen < 10 ug/mL (10-30); Salicylate < 1.0 mg/dL (<20)
--- NOTE | 2021-11-23 07:36 | DI.CT.S_ITS ---
PROCEDURE: CT CERVICAL SPINE WO CON INDICATIONS: Trauma TECHNIQUE: Noncontrast 3 mm thick sections acquired from the skull base to the T4 level. Sagittal and coronal reformats were then constructed. For radiation dose reduction, the following was used: automated exposure control, adjustment of mA and/or kV according to patient size. COMPARISON: None. FINDINGS: Image quality: Image degraded by moderate patient motion artifact. Bones: No acute fractures or dislocations. No acute compression fractures of the vertebral bodies. Craniocervical junction is intact. C1-C2 relationship is preserved. Visualized superior ribs are intact. Multilevel cervical spondylosis most prominent at C5-6. No significant spinal canal stenosis identified. Soft tissues: Prevertebral soft tissues are normal in thickness. No paravertebral hematomas. No apical pneumothoraces. IMPRESSION: CT cervical spine without acute fracture or traumatic malalignment. Mild multilevel cervical spondylosis most pronounced at C5-6. Dictated by: Mingo Maria M.D. on 11/23/2021 at 7:46 Approved by: Mingo Maria M.D. on 11/23/2021 at 7:50
[2021-11-23] MEDS: LORazepam 2 MG/ML INJ IV (07:43)
[2021-11-23 07:50] LABS: Procalcitonin 0.04 ng/mL (<0.5)
[2021-11-23] MEDS: LORazepam 2 MG/ML INJ ×2 (07:55)
[2021-11-23 07:57] LABS: Prolactin 46.9 ng/mL (3.7-17.9)
[2021-11-23 08:00] LABS: COVID19 -Nasal RAPID Negative (Negative)
[2021-11-23 08:04] LABS: Appearance Urine UA CLEAR; Bilirubin Urine UA NEGATIVE (NEGATIVE); Color Urine UA YELLOW; Glucose Urine UA NEGATIVE (Negative); Ketones Urine UA TRACE (NEGATIVE); Leukocyte Esterase Urine UA NEGATIVE (NEGATIVE); Nitrite Urine UA NEGATIVE (Negative); Occult Blood Urine UA 3+ (Negative); Protein Urine UA 3+ (Negative); Specific Gravity Urine UA >=1.030 (1.000-1.035); Urobilinogen Urine UA 0.2 E.U./dL (0.2)
[2021-11-23 08:07] LABS: UR Morphine/Opiate cutoff 300 Positive (Negative); Ur Creatinine Normal (Normal); Ur Specific Gravity Normal (Normal); Urine Amphetamines Negative (Negative); Urine Barbiturates Negative (Negative); Urine Benzodiazepines Negative (Negative); Urine Cocaine Negative (Negative); Urine MDMA Negative (Negative); Urine Methadone Negative (Negative); Urine Methamphetamines Negative (Negative); Urine Oxycodone Negative (Negative); Urine Phencyclidine Negative (Negative); Urine Tetrahydrocannabinol Negative (Negative); Urine Tricyclic Antidepressant Negative (Negative); Urine pH Normal (Normal)
[2021-11-23] MEDS: levETIRAcetam 1,000 MG in SODIUM CHLORIDE 0.9% 100 ML 440 ML IV (08:07)
[2021-11-23 08:09] LABS: Bacteria Urine None Seen; RBC Urine 5-10/HPF (0-5/HPF); WBC Urine None Seen (0-5/HPF)
[2021-11-23 08:10] LABS: Culture Indicated Urine Cult Not Indicated; Hyaline Casts Urine 5-10/LPF
[2021-11-23] MEDS: HYDROMORPHONE 1 MG INJ IV (08:20)
[2021-11-23] MEDS: ETOMIDATE 2 MG/ML 10 ML VIAL 20 MG IV (08:43)
[2021-11-23] MEDS: SUCCINYLCHOLINE 200 MG/10 ML VIAL 150 MG IV (08:46)
--- NOTE | 2021-11-23 08:47 | DI.RAD.S_ITS ---
PROCEDURE: XR CHEST 1V INDICATIONS: POST INTUBATION ER TECHNIQUE: One view of the chest was acquired. COMPARISON: [facility], , CHEST 2 VIEW, 12/25/2016, 15:33. FINDINGS: Surgical changes and devices: Interval placement of an endotracheal tube, which projects 4 cm from the pipo Lungs and pleura: Reduced lung volumes. Bilateral, predominantly upper lung zone airspace opacities. No pleural effusions or pneumothorax. Mediastinum: Prominence of the cardiac silhouette, exaggerated by technique. Bones and chest wall: No suspicious bony lesions. Overlying soft tissues appear unremarkable. IMPRESSION: Endotracheal tube in situ as detailed above. Dictated by: Jeremy Olson M.D. on 11/23/2021 at 9:09 Approved by: Jeremy Olson M.D. on 11/23/2021 at 9:10
[2021-11-23] MEDS: MIDAZOLAM 5 MG/ML VIAL 10 MG IV (08:57)
[2021-11-23 08:59] LABS: Reflexed Lactate in 2 Hours Y
[2021-11-23] MEDS: fentaNYL 100 MCG/2 ML INJ 50 MCG IV ×2 (09:11→10:00)
[2021-11-23] MEDS: MIDAZOLAM 2 MG/2 ML VIAL 10 MG (09:19)
[2021-11-23] MEDS: MIDAZOLAM 50 MG in DEXTROSE 5% IN WATER 240 ML 11 ML IV (09:22)
[2021-11-23] MEDS: fentaNYL 1,000 MCG in DEXTROSE 5% IN WATER 230 ML 19.25 ML IV (09:26)
[2021-11-23] MEDS: ACYCLOVIR 1,000 MG in DEXTROSE 5% IN WATER 250 ML IV (09:28)
[2021-11-23] MEDS: SODIUM CHLORIDE 0.9% 1,000 ML 150 ML IV (09:41)
[2021-11-23] MEDS: cefTRIAXone 2,000 MG in SODIUM CHLORIDE 0.9% 100 ML 200 ML IV (09:43)
[2021-11-23 09:46] LABS: Lactate 2HR (Lactic Acid Rflx) 1.8 mmol/L (0.7-2.1)
--- NOTE | 2021-11-23 09:46 | PC.NURSE ---
Pt is deeply sedated, no further indication for restraints at this time.
[2021-11-23 10:02] LABS: Fractionated Inspired Oxygen 30; HCO3 ABG 24 mmol/L (22-26); Oxygen Saturation ABG 94 % (95-100); PCO2 ABG 52.7 mmHg (35-45); PO2 ABG 83 mmHg (80-100); TCO2 ABG 25 mmol/L (21-31); pH ABG 7.27 (7.35-7.45)
--- NOTE | 2021-11-23 10:39 | PC.NURSE ---
Fentanyl, midazolam, fluids, discontinued for purposes of I[facility] charting only, continued with ALNW
--- NOTE | 2021-11-23 10:41 | PC.NURSE ---
Patient arrived via EMS combative, flailing arms and legs. Appears to be in pain, but unable to verbalize any coherent sentences. Patient medicated in CT scanner for imaging, but aroused and began flailing arms and legs again while moaning in pain and sweating profusely. Seizure precautions in place and RN one to one with patient for entire stay. Further doses of Ativan, Fentanyl, and Versed given, but patient still appearing to be in distress. Soft restraints applied, per physician order, as he is continually pulling at lines, flailing arms and legs. Gave another 5mg of Versed, IV. Patient having snoring respirations and hypoventilation. Performed jaw thrust maneuver and alerted physician. Patient was subsequently intubated. Fentanyl and Versed drips hung per order and patient's family brought to bedside. Patient appears to be sedated comfortably and soft restraints were subsequently removed. Airlift team arrived and transfer of care to ARSENIO Alanis and ARSENIO Estrada. [facility] report form faxed.
== END 2021-11-23 10:40 | disposition short-term general hospital (02) ==
PROVIDERS: Emergency Medicine; Emergency Provider Emergency Medicine
DX: R56.9 Unspecified convulsions (principal); S32.010A Wedge compression fracture of first lumbar vertebra, initial encounter for closed fracture; Z20.822 Contact with and (suspected) exposure to COVID-19; Z88.0 Allergy status to penicillin; W18.2XXA Fall in (into) shower or empty bathtub, initial encounter
CPT/HCPCS: 31500; 36415; 36600; 70450; 71045; 71275; 72125; 74174; 80053; 80305; 80320; 80329; 81001; 82550; 82553; 82805; 83605; 83690; 84145; 84146; 84484; 85025; 85610; 85730; 87040; 87635; 93005; 93010; 93970; 94002; 94003; 94799; 96361; 96365; 96367; 96368; 96375; 96376; 99285; 99291; 99292; C9803; G0480; J0330; J0696; J1170; J1953; J2060; J2250; J2270; J3010

== ENCOUNTER 2022-03-07 18:32 | Emergency (ER) | payer OTHER, MEDICAID, SELFPAY ==
[2021-11-23 08:50] VITALS: RESP 14; O2SAT 98
[2022-03-07] VITALS (12 sets, daily range): BP systolic 123–146; BP diastolic 85–96; PULSE 73–102; RESP 18; TEMP 37.4; O2SAT 97–99; BMI 30.1
--- NOTE | 2022-03-07 18:42 | DI.CT.S_ITS ---
PROCEDURE: CT HEAD/BRAIN WO CON INDICATIONS: altered, history of encephalitis TECHNIQUE: Noncontrast 4.5 mm thick angled axial sections acquired from the foramen magnum to the vertex, with coronal and sagittal reformats. For radiation dose reduction, the following was used: automated exposure control, adjustment of mA and/or kV according to patient size. COMPARISON: [facility], CT, CT HEAD/BRAIN WO CON, 11/23/2021, 7:01. FINDINGS: Image quality: Excellent. CSF spaces: Basal cisterns are patent. No extra-axial fluid collections. Ventricles are normal in size and shape. Brain: No midline shift. No intracranial masses or hemorrhage. Cruz-white matter interface is normal. Skull and face: Calvarium and visualized facial bones are intact, without suspicious lesions. Multiple cutaneous scalp lesions are noted which may represent sebaceous cyst, however lesions have nonspecific imaging characteristics and correlation with clinical examination is recommended. Sinuses: Visualized sinuses and mastoids are clear. IMPRESSION: No acute intracranial disease process. Dictated by: June Carvajal MD, PhD on 03/07/2022 at 19:06 Approved by: June Carvajal MD, PhD on 03/07/2022 at 19:09
[2022-03-07 19:05] LABS: Add Manual Diff / Slide Review NO; Basophils Absolute Auto 100 /uL (0-100); Basophils Percent Auto 0.8 % (0-2); Eosinophils Absolute Auto 300 /uL (0-450); Eosinophils Percent Auto 2.9 % (2-4); Hematocrit 43.5 % (41-53); Hemoglobin 15.3 g/dL (13.5-17.5); Lymphocytes Absolute Auto 2100 /uL (1100-4500); Lymphocytes Percent Auto 20.9 % (25-40); Mean Corpuscular HGB Conc 35.2 % (30-36); Mean Corpuscular Hemoglobin 27.1 PG (26-34); Mean Corpuscular Volume 77.2 fL (80-100); Monocytes Absolute Auto 1700 /uL (0-900); Monocytes Percent Auto 16.6 % (3-14); Neutrophils Absolute Auto 6000 /uL (1500-7000); Neutrophils Percent Auto 58.8 % (50-75); Platelet Count 182 X10^3/uL (150-400); Red Blood Cell Count 5.63 X10^6/uL (4.5-5.9); Red Cell Distribution Width 14.2 % (11.6-14.8); White Blood Cell Count 10.2 X10^3/uL (4.5-11.0)
--- NOTE | 2022-03-07 19:12 | ED_ITS ---
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 There are elements of this presentation that her quite similar to the events that led to his encephalitis, unstable spine fracture and transferred to [facility] few months ago and he and his were concerned and wanted to be evaluated. He denies any headache or blurred vision or any trouble with speech or finding words. He has no numbness, tingling or weakness. He is not dizzy or lightheaded. He denies chest pain or shortness of breath and has no abdominal pain. He denies any new medications or dietary change Related Data Home Medications Medication Instructions Recorded Confirmed No Known Home Medications 03/23/20 03/23/20 Allergies Allergy/AdvReac Type Severity Reaction Status Date / Time kiwi [KIWI] Allergy Severe THROAT Verified 03/23/20 10:11 SWELLS UP, ALMOST Penicillins [PENICILLINS] Allergy Severe HIVES Verified 03/23/20 10:11 Review of Systems Review of Systems Narrative: GENERAL: See HPI HEENT: Denies sinus pain, ear pain, sore throat, difficulty swallowing, dizziness. RESPIRATORY: Denies dyspnea, cough, wheezing, hemoptysis, sputum. CARDIOVASCULAR: Denies chest pain, palpitations, orthopnea, edema, GASTROINTESTINAL: See HPI : Denies dysuria, frequency, incontinence, hematuria, urinary retention. MUSCULOSKELETAL: denies weakness, joint pain, or bony pain SKIN: Denies rash, skin lesions, or other NEUROLOGIC: See HPI PSYCHIATRIC: No concerning psychosocial issues. 12 point review of systems is negative except for those stated above Patient History Social History marital status: Smoking Status: Never smoker alcohol intake: current substance use type: does not use Smoking Status: Never smoker alcohol intake frequency: 0-2 drinks per day Substance Use Type: does not use Exam Narrative Exam Narrative: GENERAL: [42] year old patient appears stated age. Well-developed patient, in no obvious distress, GCS 15 HEAD: Atraumatic. Normocephalic. EYES: Pupils equal round and reactive. Extraocular motions intact. No scleral icterus. No injection or drainage. ENT: Nose without bleeding, purulent drainage. Throat without erythema, tonsillar hypertrophy or exudate. Airway patent. NECK: Trachea midline. Non tender CARDIOVASCULAR: Regular rate and rhythm without murmurs, gallops, or rubs. RESPIRATORY: Clear to auscultation. Breath sounds equal bilaterally. No wheezes, rales, or rhonchi. GASTROINTESTINAL: Abdomen soft, non-tender, nondistended. EXTREMITIES: No edema or joint tenderness. BACK: Nontender without deformity or crepitance. No flank tenderness. NEURO: AOx3. SKIN: No rash or erythema of visible areas NIH Stroke Scale 1a. LOC: Patient is alert and keenly responsive (0) 1b. LOC Questions: Patient answers both LOC questions accurately (0) 1c. LOC Commands: Patient performs both tasks correctly (0) 2. Best Gaze: Normal (0) 3. Visual: No visual loss (0) 4. Facial palsy: Normal symmetrical movements (0) 5. Motor arm: No drift (0) 6. Motor leg: No drift (0) 7. Limb ataxia: Absent (0) 8. Sensory: Normal (0) 9. Best language: No aphasia; normal (0) 10. Dysarthria: Normal (0) 11. Extinction and inattention: No abnormality (0) NIHSS: 0 Initial Vital Signs Initial Vital Signs: Vital Signs Temperature 99.4 F 03/07/22 18:35 Pulse Rate 102 H 03/07/22 18:35 Respiratory Rate 18 03/07/22 18:35 Blood Pressure 146/96 H 03/07/22 18:35 Pulse Oximetry 99 03/07/22 18:35 Oxygen Delivery Method 03/07/22 18:35 Course Orders Ordered: ED Orders 03/07/22 19:20 Urine Drug Screen, Rapid Stat 03/07/22 19:37 Blood Culture Stat 03/07/22 21:28 GI Panel (Film Array) Stat Discontinued Medications Lactated Ringer's (Lactated Ringers) 1,000 mls @ 1,000 mls/hr IV BOLUS ONE Stop: 03/07/22 19:41 Last Infusion: 03/07/22 21:17 Dose: 0 mls/hr Documented By: Admin: 03/07/22 19:21 Dose: 1,000 mls/hr Documented By: ARISTIDES Vital Signs Vital signs: Vital Signs - 8 hr 03/07/22 20:30 03/07/22 20:30 03/07/22 21:00 Pulse Rate 73 Blood Pressure 123/87 127/85 Pulse Oximetry 98 03/07/22 21:00 03/07/22 21:36 03/07/22 21:36 Pulse Rate 75 86 Blood Pressure 130/92 H Pulse Oximetry 98 98 03/07/22 23:28 03/07/22 23:29 03/07/22 23:29 Pulse Rate 87 88 Blood Pressure 127/86 Pulse Oximetry 99 98 03/07/22 23:30 Pulse Rate 77 Blood Pressure Pulse Oximetry 98 MDM - Altered Mental Status Lab Data Result diagrams: 03/07/22 18:50 03/07/22 18:50 Labs: Lab Results 03/07/22 03/07/22 03/07/22 Range/Units 18:50 18:50 18:50 WBC 10.2 (4.5-11.0) X10^3/uL RBC 5.63 (4.5-5.9) X10^6/uL Hgb 15.3 (13.5-17.5) g/dL Hct 43.5 (41-53) % MCV 77.2 L (80-100) fL MCH 27.1 (26-34) PG MCHC 35.2 (30-36) % RDW 14.2 (11.6-14.8) % Plt Count 182 (150-400) X10^3/uL Neut % (Auto) 58.8 (50-75) % Lymph % (Auto) 20.9 L (25-40) % [place] % (Auto) 16.6 H (3-14) % Eos % (Auto) 2.9 (2-4) % Baso % (Auto) 0.8 (0-2) % Neut # (Auto) 6000 (3026-5836) /uL Lymph # (Auto) 2100 (9317-7389) /uL [place] # (Auto) 1700 H (0-900) /uL Eos # (Auto) 300 (0-450) /uL Baso # (Auto) 100 (0-100) /uL ESR 4 (0-15) MM/HR Sodium 140 (137-145) mmol/L Potassium 3.6 (3.4-5.1) mmol/L Chloride 105 (98-107) mmol/L Carbon Dioxide 28 (22-32) mmol/L BUN 12 (9-20) mg/dL Creatinine 0.84 (0.66-1.25) mg/dL Estimated GFR > 60 (>60) mL/min BUN/Creatinine Ratio 14.3 (6-22) Glucose 99 (70-100) mg/dL Lactate (0.7-2.1) mmol/L Calcium 9.0 (8.4-10.2) mg/dL Magnesium 1.8 (1.6-2.3) mg/dL Total Bilirubin 0.6 (0.2-1.3) mg/dL AST 29 (17-59) IU/L ALT 26 (<50) IU/L Alkaline Phosphatase 66 (38-126) U/L Total Creatine Kinase 124 (55-170) U/L CK-MB (CK-2) 1.22 (<2.37) ng/mL CK-MB (CK-2) Rel Index 1.0 L (1.5-5.0) % Troponin I < 0.012 (0.01-0.034) ng/mL C-Reactive Protein 2.3 H (<1.0) mg/dL Total Protein 8.0 (6.3-8.2) g/dL Albumin 4.8 (3.5-5.0) g/dL Globulin 3.2 (1.7-4.1) g/dL Albumin/Globulin Ratio 1.5 (1.0-2.8) Lipase 78 (23-300) U/L Procalcitonin 0.07 (<0.5) ng/mL Stl C. cayetanensis PCR (Not Detect) Stool Rotavirus (PCR) (Not Detect) Stool Adenovirus (PCR) (Not Detect) Stool Astrovirus (PCR) (Not Detect) Stool Cryptosporidium PCR (Not Detect) Stl E.coli Shiga Tox PCR (Not Detect) St Sh/Enteroin Ecoli PCR (Not Detect) Stool E coli O157 PCR Stl Enterotoxigenic E PCR (Not Detect) Stool EPEC (PCR) (Not Detect) Stl E. histolytica PCR (Not Detect) Stool Giardia Lamblia PCR (Not Detect) Stool Sapovirus (PCR) (Not Detect) Stl P. shigelloides PCR (Not Detect) St Y.enterocolitica PCR (Not Detect) Stool Vibrio (PCR) (Not Detect) Stl Vibrio cholerae PCR (Not Detect) Stl Enteroaggr Ecoli PCR (Not Detect) Stl Norovirus GI/GII PCR (Not Detect) Salicylates < 1.0 (<20) mg/dL U Opiates 300ng/mL cut (Negative) Ur Oxycodone Screen (Negative) Urine Methadone Screen (Negative) Acetaminophen < 10 (10-30) ug/mL Ur Barbiturates Screen (Negative) U Tricyclic Antidepress (Negative) Ur Phencyclidine Scrn (Negative) Ur Amphetamines Screen (Negative) U Methamphetamines Scrn (Negative) Ur MDMA Scrn (Ecstasy) (Negative) U Benzodiazepines Scrn (Negative) Urine Cocaine Screen (Negative) U Marijuana (THC) Screen (Negative) Ethyl Alcohol ( - 10) mg/dL Campylobacter (PCR) (Not Detect) C. difficile Tox (PCR) (Not Detect) Salmonella (PCR) (Not Detect) 03/07/22 03/07/22 03/07/22 Range/Units 18:50 18:50 19:20 WBC (4.5-11.0) X10^3/uL RBC (4.5-5.9) X10^6/uL Hgb (13.5-17.5) g/dL Hct (41-53) % MCV (80-100) fL MCH (26-34) PG MCHC (30-36) % RDW (11.6-14.8) % Plt Count (150-400) X10^3/uL Neut % (Auto) (50-75) % Lymph % (Auto) (25-40) % [place] % (Auto) (3-14) % Eos % (Auto) (2-4) % Baso % (Auto) (0-2) % Neut # (Auto) (2674-1917) /uL Lymph # (Auto) (3705-7503) /uL [place] # (Auto) (0-900) /uL Eos # (Auto) (0-450) /uL Baso # (Auto) (0-100) /uL ESR (0-15) MM/HR Sodium (137-145) mmol/L Potassium (3.4-5.1) mmol/L Chloride (98-107) mmol/L Carbon Dioxide (22-32) mmol/L BUN (9-20) mg/dL Creatinine (0.66-1.25) mg/dL Estimated GFR (>60) mL/min BUN/Creatinine Ratio (6-22) Glucose (70-100) mg/dL Lactate 0.9 (0.7-2.1) mmol/L Calcium (8.4-10.2) mg/dL Magnesium (1.6-2.3) mg/dL Total Bilirubin (0.2-1.3) mg/dL AST (17-59) IU/L ALT (<50) IU/L Alkaline Phosphatase (38-126) U/L Total Creatine Kinase (55-170) U/L CK-MB (CK-2) (<2.37) ng/mL CK-MB (CK-2) Rel Index (1.5-5.0) % Troponin I (0.01-0.034) ng/mL C-Reactive Protein (<1.0) mg/dL Total Protein (6.3-8.2) g/dL Albumin (3.5-5.0) g/dL Globulin (1.7-4.1) g/dL Albumin/Globulin Ratio (1.0-2.8) Lipase (23-300) U/L Procalcitonin (<0.5) ng/mL Stl C. cayetanensis PCR (Not Detect) Stool Rotavirus (PCR) (Not Detect) Stool Adenovirus (PCR) (Not Detect) Stool Astrovirus (PCR) (Not Detect) Stool Cryptosporidium PCR (Not Detect) Stl E.coli Shiga Tox PCR (Not Detect) St Sh/Enteroin Ecoli PCR (Not Detect) Stool E coli O157 PCR Stl Enterotoxigenic E PCR (Not Detect) Stool EPEC (PCR) (Not Detect) Stl E. histolytica PCR (Not Detect) Stool Giardia Lamblia PCR (Not Detect) Stool Sapovirus (PCR) (Not Detect) Stl P. shigelloides PCR (Not Detect) St Y.enterocolitica PCR (Not Detect) Stool Vibrio (PCR) (Not Detect) Stl Vibrio cholerae PCR (Not Detect) Stl Enteroaggr Ecoli PCR (Not Detect) Stl Norovirus GI/GII PCR (Not Detect) Salicylates (<20) mg/dL U Opiates 300ng/mL cut Negative (Negative) Ur Oxycodone Screen Negative (Negative) Urine Methadone Screen Negative (Negative) Acetaminophen (10-30) ug/mL Ur Barbiturates Screen Negative (Negative) U Tricyclic Antidepress Negative (Negative) Ur Phencyclidine Scrn Negative (Negative) Ur Amphetamines Screen Negative (Negative) U Methamphetamines Scrn Negative (Negative) Ur MDMA Scrn (Ecstasy) Negative (Negative) U Benzodiazepines Scrn Negative (Negative) Urine Cocaine Screen Negative (Negative) U Marijuana (THC) Screen Positive H (Negative) Ethyl Alcohol < 10 ( - 10) mg/dL Campylobacter (PCR) (Not Detect) C. difficile Tox (PCR) (Not Detect) Salmonella (PCR) (Not Detect) 03/07/ Range/Units 21:28 WBC (4.5-11.0) X10^3/uL RBC (4.5-5.9) X10^6/uL Hgb (13.5-17.5) g/dL Hct (41-53) % MCV (80-100) fL MCH (26-34) PG MCHC (30-36) % RDW (11.6-14.8) % Plt Count (150-400) X10^3/uL Neut % (Auto) (50-75) % Lymph % (Auto) (25-40) % [place] % (Auto) (3-14) % Eos % (Auto) (2-4) % Baso % (Auto) (0-2) % Neut # (Auto) (7417-1339) /uL Lymph # (Auto) (0989-4173) /uL [place] # (Auto) (0-900) /uL Eos # (Auto) (0-450) /uL Baso # (Auto) (0-100) /uL ESR (0-15) MM/HR Sodium (137-145) mmol/L Potassium (3.4-5.1) mmol/L Chloride (98-107) mmol/L Carbon Dioxide (22-32) mmol/L BUN (9-20) mg/dL Creatinine (0.66-1.25) mg/dL Estimated GFR (>60) mL/min BUN/Creatinine Ratio (6-22) Glucose (70-100) mg/dL Lactate (0.7-2.1) mmol/L Calcium (8.4-10.2) mg/dL Magnesium (1.6-2.3) mg/dL Total Bilirubin (0.2-1.3) mg/dL AST (17-59) IU/L ALT (<50) IU/L Alkaline Phosphatase (38-126) U/L Total Creatine Kinase (55-170) U/L CK-MB (CK-2) (<2.37) ng/mL CK-MB (CK-2) Rel Index (1.5-5.0) % Troponin I (0.01-0.034) ng/mL C-Reactive Protein (<1.0) mg/dL Total Protein (6.3-8.2) g/dL Albumin (3.5-5.0) g/dL Globulin (1.7-4.1) g/dL Albumin/Globulin Ratio (1.0-2.8) Lipase (23-300) U/L Procalcitonin (<0.5) ng/mL Stl C. cayetanensis PCR Not detected (Not Detect) Stool Rotavirus (PCR) Not detected (Not Detect) Stool Adenovirus (PCR) Not detected (Not Detect) Stool Astrovirus (PCR) Not detected (Not Detect) Stool Cryptosporidium PCR Not detected (Not Detect) Stl E.coli Shiga Tox PCR Not detected (Not Detect) St Sh/Enteroin Ecoli PCR Not detected (Not Detect) Stool E coli O157 PCR Not Reportable Stl Enterotoxigenic E PCR Not detected (Not Detect) Stool EPEC (PCR) Not detected (Not Detect) Stl E. histolytica PCR Not detected (Not Detect) Stool Giardia Lamblia PCR Not detected (Not Detect) Stool Sapovirus (PCR) Not detected (Not Detect) Stl P. shigelloides PCR Not detected (Not Detect) St Y.enterocolitica PCR Not detected (Not Detect) Stool Vibrio (PCR) Not detected (Not Detect) Stl Vibrio cholerae PCR Not detected (Not Detect) Stl Enteroaggr Ecoli PCR Not detected (Not Detect) Stl Norovirus GI/GII PCR Not detected (Not Detect) Salicylates (<20) mg/dL U Opiates 300ng/mL cut (Negative) Ur Oxycodone Screen (Negative) Urine Methadone Screen (Negative) Acetaminophen (10-30) ug/mL Ur Barbiturates Screen (Negative) U Tricyclic Antidepress (Negative) Ur Phencyclidine Scrn (Negative) Ur Amphetamines Screen (Negative) U Methamphetamines Scrn (Negative) Ur MDMA Scrn (Ecstasy) (Negative) U Benzodiazepines Scrn (Negative) Urine Cocaine Screen (Negative) U Marijuana (THC) Screen (Negative) Ethyl Alcohol ( - 10) mg/dL Campylobacter (PCR) Not detected (Not Detect) C. difficile Tox (PCR) Not detected (Not Detect) Salmonella (PCR) Not detected (Not Detect) Urine Dip Bedside Urine Glucose Negative Bedside Urine Bilirubin - Negative Bedside Urine Ketone - Negative Urine Specific [place] 1.010 Bedside Urine Occult Blood +/- Bedside Urine pH 6.0 Bedside Urine Protein - Negative Bedside Urine Urobilinogen - Negative Bedside Urine Nitrite - Negative Bedside Urine Leukocytes - Negative Esterase Imaging Data CT scan - head: Radiologist's Impression: Close Head CT (Signed) June Carvajal - 03/07/22 Chest X-Ray (Signed) Jeremy Olson - 11/23/[address] (Signed) Mingo Maria - 11/23/21 Vascular Ultrasound (Signed) Jeremy Olson - 11/23/21 Telemetry Strips 11/23/[address] (Signed) Mingo Maria - 11/23/21 Chest/Abdomen/Pelvis CTA (Signed) Jillian Hammer - 11/23/21 Cervical Spine X-Ray (Signed) Kody West - 09/25/18 Launch?[address] [address] [address] Scan Report Signed Patient: Tomas Olvera MR#: [id number] : 1980 Acct:[id number] Age/Sex: 42 / M Date of Service: 03/07/22 Loc: ED Accession Number: [id number] ?? Procedure: CT head/brain wo con Ordering Provider: Matias Skinner D.O. PROCEDURE:? CT HEAD/BRAIN WO CON ? INDICATIONS:? altered, history of encephalitis ? TECHNIQUE:? Noncontrast 4.5 mm thick angled axial sections acquired from the foramen magnum to the vertex, with coronal and sagittal reformats.? For radiation dose reduction, the following was used:? automated exposure control, adjustment of mA and/or kV according to patient size.? ? COMPARISON:? [facility], CT, CT HEAD/BRAIN WO CON, 11/23/2021, 7:01. ? FINDINGS:? Image quality:? Excellent.? ? CSF spaces:? Basal cisterns are patent.? No extra-axial fluid collections.? Ventricles are normal in size and shape.? ? Brain:? No midline shift.? No intracranial masses or hemorrhage.? Cruz-white matter interface is normal.? ? Skull and face:? Calvarium and visualized facial bones are intact, without suspicious lesions.? Multiple cutaneous scalp lesions are noted which may represent sebaceous cyst, however lesions have nonspecific imaging characteristics and correlation with clinical examination is recommended.? ? Sinuses:? Visualized sinuses and mastoids are clear.? ? IMPRESSION:? No acute intracranial disease process. ? ? Dictated by: June Carvajal MD, PhD on 03/07/2022 at 19:06 ? ? Approved by: June Carvajal MD, PhD on 03/07/2022 at 19:09 ? [facility] Narrative Medical decision making narrative: Patient with mild and largely, if not completely resolved symptoms presents with his due to concerns that this is similar to how he presented with his encephalitis. Patient's physical exam, labs and imaging are very reassuring. His vitals are unremarkable, CT scan demonstrates no significant findings. He has no fever, was tolerating orals and is experiencing no pain. He is alert and oriented with a very reassuring neurologic exam. The circumstances contributing to his diarrhea (normal GI panel) and fatigue and confusion earlier today are unclear. We did discuss the potential of performing a lumbar puncture but sure the opinion that given no ongoing symptoms and baseline exam is not needed, or indicated at this time. Extensive return precautions have been discussed and questions answered to the apparent satisfaction of both patient and his . Discharge Plan Departure Patient Disposition: Home Clinical Impression: Diarrhea, Acute confusion Instructions: DI for Altered Mental Status Activity Restrictions/Additional Instructions: *You have been diagnosed with [diarrhea and improved confusion ] *What to do: *Please continue to take your regular medications as directed. [ ] New medication prescriptions sent to your pharmacy: [ ] [ ] New medication written as a paper prescription [x ] No new medications given *Please follow up with your primary care provider in 2-3 days, call for an appointment. Let them know you were seen in the Emergency Department and that we ask that you be seen in follow up. We will electronically transmit a record of today's note if your PCP is in our system *If you do not have a primary care provider please contact the [facility] Resource line at [phone]. They will ask some questions about your medical history and help get you set up with a doctor in the community. *Return to Emergency Department if you should have any new, worsening or concerning symptoms, such as [fever greater than 101 F, shaking chills, worsening pain, persistent vomiting or other bothersome symptoms] Prescriptions: No Action No Known Home Medications Visit Report Forms: Patient Portal/API
[2022-03-07 19:18] LABS: Acetaminophen < 10 ug/mL (10-30); Ethanol (ETOH) < 10 mg/dL; Lactate (Lactic Acid) 0.9 mmol/L (0.7-2.1); Salicylate < 1.0 mg/dL (<20)
[2022-03-07 19:19] LABS: Alanine Aminotransferase 26 IU/L (<50); Albumin 4.8 g/dL (3.5-5.0); Albumin Globulin Ratio 1.5 (1.0-2.8); Alkaline Phosphatase 66 U/L (38-126); Aspartate Aminotransferase 29 IU/L (17-59); BUN Creatinine Ratio 14.3 (6-22); Bilirubin Total 0.6 mg/dL (0.2-1.3); Blood Urea Nitrogen 12 mg/dL (9-20); C-Reactive Protein Quant 2.3 mg/dL (<1.0); Carbon Dioxide 28 mmol/L (22-32); Chloride 105 mmol/L (98-107); Creatine Kinase 124 U/L (55-170); Estimated Glomerular Filt Rate > 60 mL/min (>60); Globulin 3.2 g/dL (1.7-4.1); Glucose 99 mg/dL (70-100); HEMOLYSIS < 15 (0-50); Lipase 78 U/L (23-300); Magnesium 1.8 mg/dL (1.6-2.3); Potassium 3.6 mmol/L (3.4-5.1); Sodium 140 mmol/L (137-145)
[2022-03-07] MEDS: LACTATED RINGERS 1,000 ML 1000 ML IV (19:21)
[2022-03-07 19:28] LABS: Troponin I < 0.012 ng/mL (0.01-0.034)
[2022-03-07 19:32] LABS: Creatine Kinase MB 1.22 ng/mL (<2.37)
[2022-03-07 19:34] LABS: Erythrocyte Sedimentation Rate 4 MM/HR (0-15); Procalcitonin 0.07 ng/mL (<0.5)
[2022-03-07 19:40] LABS: UR Morphine/Opiate cutoff 300 Negative (Negative); Ur Creatinine Normal (Normal); Ur Specific Gravity Normal (Normal); Urine Amphetamines Negative (Negative); Urine Barbiturates Negative (Negative); Urine Benzodiazepines Negative (Negative); Urine Cocaine Negative (Negative); Urine MDMA Negative (Negative); Urine Methadone Negative (Negative); Urine Methamphetamines Negative (Negative); Urine Oxycodone Negative (Negative); Urine Phencyclidine Negative (Negative); Urine Tetrahydrocannabinol Positive (Negative); Urine Tricyclic Antidepressant Negative (Negative); Urine pH Normal (Normal)
--- NOTE | 2022-03-07 20:36 | PC.NURSE ---
Pt reports recent episode of confusion and dizziness earlier today lasting for a short time. Pt reports an episode of N&V and diarrhea on Sunday which has since resolved. Pt says these two things are similar to what triggered a seizure in early November due to encephalitis. The seizure in November happened while pt was in the shower and as a result he had a fractured spine and rib. Pt came to the ED today because of the similar symptoms. Seizure pads in place. Denies any pain, dizziness, or confusion currently. Encouraged to use call light for any needs.
[2022-03-07 22:59] LABS: Adenovirus F 40/41 Not Detected (Not Detect); Astrovirus Not Detected (Not Detect); Campylobacter Not Detected (Not Detect); Clostridium difficile toxin AB Not Detected (Not Detect); Cryptosporidium Not Detected (Not Detect); Cyclospora cayetanensis Not Detected (Not Detect); Entamoeba histolytica Not Detected (Not Detect); Enteroaggregative E.coli Not Detected (Not Detect); Enteropathogenic E.coli Not Detected (Not Detect); Enterotoxigenic E.coli It/st Not Detected (Not Detect); Giardia lamblia Not Detected (Not Detect); Norovirus GI/GII Not Detected (Not Detect); Plesiomonsa shigelloides Not Detected (Not Detect); Rotavirus A Not Detected (Not Detect); Salmonella Not Detected (Not Detect); Sapovirus Not Detected (Not Detect); Shiga-like toxin-prod E.coli Not Detected (Not Detect); Shigella/Enteroinvasive E.coli Not Detected (Not Detect); Vibrio Not Detected (Not Detect); Vibrio cholerae Not Detected (Not Detect); Yersinia enterocolitica Not Detected (Not Detect)
== END 2022-03-08 00:15 | disposition home or self-care (01) ==
PROVIDERS: Emergency Provider Emergency Medicine
DX: R19.7 Diarrhea, unspecified (principal); R41.0 Disorientation, unspecified; R11.0 Nausea; R53.83 Other fatigue
CPT/HCPCS: 36415; 70450; 80053; 80305; 80320; 80329; 81003; 82550; 82553; 83605; 83690; 83735; 84145; 84484; 85025; 85651; 86140; 87040; 87507; 96360; 96361; 99284; G0480

== ENCOUNTER 2022-06-28 02:25 | Emergency (ER) | payer OTHER, MEDICAID, SELFPAY ==
[2021-11-23 08:50] VITALS: RESP 14; O2SAT 98
[2022-06-28 02:30] VITALS: BP 121/80; PULSE 108; RESP 14; TEMP 35.9; O2SAT 95
--- NOTE | 2022-06-28 02:30 | DI.CT.S_ITS ---
PROCEDURE: CT HEAD/BRAIN WO CON INDICATIONS: altered, change in seizure pattern TECHNIQUE: Noncontrast 4.5 mm thick angled axial sections acquired from the foramen magnum to the vertex, with coronal and sagittal reformats. For radiation dose reduction, the following was used: automated exposure control, adjustment of mA and/or kV according to patient size. COMPARISON: [facility], CT, CT HEAD/BRAIN WO CON, 11/23/2021, 7:01. [facility], CT, CT HEAD/BRAIN WO CON, 03/07/2022, 18:49. FINDINGS: Image quality: Excellent. CSF spaces: Basal cisterns are patent. No extra-axial fluid collections. Ventricles are normal in size and shape. Brain: No midline shift. No intracranial masses or hemorrhage. Cruz-white matter interface is normal. Skull and face: Calvarium and visualized facial bones are intact, without suspicious lesions. Sinuses: Visualized sinuses and mastoids are clear. IMPRESSION: 1. No acute intracranial abnormalities. No significant discrepancy with the evening or night nurse supervisor radiology preliminary report. Dictated by: Mc Rodriguez M.D. on 06/28/2022 at 8:07 Approved by: Mc Rodriguez M.D. on 06/28/2022 at 8:08
--- NOTE | 2022-06-28 02:30 | ED_ITS ---
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 It did stop prior to EMS arrival and when he got evaluated by them he was found to be postictal, when they were attempting to load him he was a bit confused and he was subsequently given Versed to allow safe transport. There is no report of any missed doses of medication, recent trauma, head injury or fevers. Related Data Home Medications Medication Instructions Recorded Confirmed No Known Home Medications 03/23/20 03/23/20 Allergies Allergy/AdvReac Type Severity Reaction Status Date / Time kiwi [KIWI] Allergy Severe THROAT Verified 03/23/20 10:11 SWELLS UP, ALMOST Penicillins [PENICILLINS] Allergy Severe HIVES Verified 03/23/20 10:11 Review of Systems Review of Systems Narrative: GENERAL: Denies chills, fatigue, malaise, fever, sweats. HEENT: Denies sinus pain, ear pain, sore throat, difficulty swallowing, dizziness. RESPIRATORY: Denies dyspnea, cough, wheezing, hemoptysis, sputum. CARDIOVASCULAR: Denies chest pain, palpitations, orthopnea, edema, GASTROINTESTINAL: Denies nausea, vomiting, abdominal pain, diarrhea, consti pation, melena. : Denies dysuria, frequency, incontinence, hematuria, urinary retention. MUSCULOSKELETAL: denies weakness, joint pain, or bony pain SKIN: Denies rash, skin lesions, or other NEUROLOGIC: See HPI PSYCHIATRIC: No concerning psychosocial issues. 12 point review of systems is negative except for those stated above Patient History Social History marital status: Smoking Status: Never smoker alcohol intake: current substance use type: does not use Smoking Status: Never smoker alcohol intake frequency: 0-2 drinks per day Substance Use Type: does not use Exam Narrative Exam Narrative: GENERAL: [42] year old patient appears stated age. Well-developed patient, in mild distress. HEAD: Atraumatic. Normocephalic. EYES: Pupils equal round and reactive. Extraocular motions intact. No scleral icterus. No injection or drainage. ENT: Nose without bleeding, purulent drainage. Throat without erythema, tonsillar hypertrophy or exudate. Airway patent. NECK: Trachea midline. Non tender CARDIOVASCULAR: Regular rate and rhythm without murmurs, gallops, or rubs. RESPIRATORY: Clear to auscultation. Breath sounds equal bilaterally. No wheezes, rales, or rhonchi. GASTROINTESTINAL: Abdomen soft, non-tender, nondistended. EXTREMITIES: No edema or joint tenderness. BACK: Nontender without deformity or crepitance. No flank tenderness. NEURO: AOx3. SKIN: No rash or erythema of visible areas Initial Vital Signs Initial Vital Signs: Vital Signs Temperature 96.7 F L 06/28/22 02:30 Pulse Rate 108 H 06/28/22 02:30 Respiratory Rate 14 06/28/22 02:30 Blood Pressure 121/80 06/28/22 02:30 Pulse Oximetry 95 06/28/22 02:30 Oxygen Delivery Method 06/28/22 02:30 Oxygen Flow Rate 2 06/28/22 02:30 Course Course Course Narrative: Patient returns to neurologic baseline relatively soon after his arrival. He discusses that he has been feeling fine in his normal state of health lately, denies any injury, fever or illness. He denies any change in medications and states that he is been doing relatively well in the big picture. He is not had any neurologic follow-up since his visit to the [facility] last year. Orders Ordered: ED Orders 06/28/22 EKG-12 Lead Routine 06/28/22 02:30 CT head/brain wo con Stat Complete Blood Count AUTO DIFF Stat Comprehensive Metabolic Panel Stat 06/28/22 02:57 COVID19 -Nasal RAPID/Pre-Proc Stat Discontinued Medications Sodium Chloride (Normal Saline 0.9%) 1,000 mls @ 1,000 mls/hr IV BOLUS ONE Stop: 06/28/22 03:29 Last Admin: 06/28/22 02:37 Dose: 1,000 mls/hr Documented By: CAITLIN Consultations Consultation #1: Discussion with Neurology at [facility], after lengthy chat about history and physical exam as well as prior encephalitis, today's labs and imaging we sure the opinion that there is no indication for hospitalization or transfer but that close follow-up is appropriate and indicated. Vital Signs Vital signs: Vital Signs - 8 hr 06/28/22 02:30 06/28/22 02:57 06/28/22 04:15 Temperature 96.7 F L Pulse Rate 108 H 113 H 82 Respiratory Rate 14 14 14 Blood Pressure 121/80 137/83 138/75 Pulse Oximetry 95 95 97 Oxygen Delivery Method Room Air Nasal Cannula Nasal Cannula Oxygen Flow Rate 2 2 2 06/28/22 05:37 Temperature Pulse Rate 75 Respiratory Rate 16 Blood Pressure 142/94 H Pulse Oximetry 100 Oxygen Delivery Method Room Air Oxygen Flow Rate MDM - Seizure Lab Data Result diagrams: 06/28/22 02:30 06/28/22 02:30 Labs: Lab Results 06/28/22 06/28/22 Range/Units 02:30 02:30 WBC 11.3 H (4.5-11.0) X10^3/uL RBC 5.52 (4.5-5.9) X10^6/uL Hgb 15.4 (13.5-17.5) g/dL Hct 44.6 (41-53) % MCV 80.8 (80-100) fL MCH 27.9 (26-34) PG MCHC 34.5 (30-36) % RDW 14.2 (11.6-14.8) % Plt Count 211 (150-400) X10^3/uL Neut % (Auto) 54.6 (50-75) % Lymph % (Auto) 31.3 (25-40) % Whitfield % (Auto) 10.1 (3-14) % Eos % (Auto) 3.4 (2-4) % Baso % (Auto) 0.6 (0-2) % Neut # (Auto) 6100 (2612-0514) /uL Lymph # (Auto) 3500 (2363-1227) /uL Whitfield # (Auto) 1100 H (0-900) /uL Eos # (Auto) 400 (0-450) /uL Baso # (Auto) 100 (0-100) /uL Sodium 142 (137-145) mmol/L Potassium 3.7 (3.4-5.1) mmol/L Chloride 104 (98-107) mmol/L Carbon Dioxide 23 (22-32) mmol/L BUN 11 (9-20) mg/dL Creatinine 0.82 (0.66-1.25) mg/dL Estimated GFR > 60 (>60) mL/min BUN/Creatinine Ratio 13.4 (6-22) Glucose 106 H (70-100) mg/dL Calcium 8.8 (8.4-10.2) mg/dL Total Bilirubin 0.6 (0.2-1.3) mg/dL AST 23 (17-59) IU/L ALT 19 (<50) IU/L Alkaline Phosphatase 56 (38-126) U/L Total Protein 7.3 (6.3-8.2) g/dL Albumin 4.3 (3.5-5.0) g/dL Globulin 3.0 (1.7-4.1) g/dL Albumin/Globulin Ratio 1.4 (1.0-2.8) Point of Care Testing Glucose POC [address] scan - head: Radiologist's Impression: No acute findings Discharge Plan Departure Patient Disposition: Home Clinical Impression: New onset seizure Instructions: DI for Seizure (Not Epilepsy/Seizure Disorder) Activity Restrictions/Additional Instructions: *You have been diagnosed with [seizure. As we discussed your history and phy sical exam as well as labs and CT scan are very reassuring. There is no evidence of bleeding in your brain, tumor, significant lab abnormality or other diagnosis that would require a specific or immediate intervention. It is important, however, that you follow closely with your primary care provider to obtain a workup as an outpatient] *What to do: *Please continue to take your regular medications as directed. *Please follow up with your primary care provider in 2-3 days, call for an appointment. Let them know you were seen in the Emergency Department and that we ask that you be seen in follow up. We will electronically transmit a record of today's note if your PCP is in our system * as we discussed you can not drive until cleared by your doctor or Neurology, it would be quite dangerous to have a seizure while behind the wheel. *Return to Emergency Department if you should have any new, worsening or concerning symptoms, such as [fever greater than 101 F, shaking chills, worsening pain, persistent vomiting or other bothersome symptoms] Prescriptions: No Action No Known Home Medications Visit Report Forms: Patient Portal/API
[2022-06-28] MEDS: SODIUM CHLORIDE 0.9% 1,000 ML 1000 ML IV (02:37)
[2022-06-28 02:51] LABS: Add Manual Diff / Slide Review NO; Basophils Absolute Auto 100 /uL (0-100); Basophils Percent Auto 0.6 % (0-2); Eosinophils Absolute Auto 400 /uL (0-450); Eosinophils Percent Auto 3.4 % (2-4); Hematocrit 44.6 % (41-53); Hemoglobin 15.4 g/dL (13.5-17.5); Lymphocytes Absolute Auto 3500 /uL (1100-4500); Lymphocytes Percent Auto 31.3 % (25-40); Mean Corpuscular HGB Conc 34.5 % (30-36); Mean Corpuscular Hemoglobin 27.9 PG (26-34); Mean Corpuscular Volume 80.8 fL (80-100); Monocytes Absolute Auto 1100 /uL (0-900); Monocytes Percent Auto 10.1 % (3-14); Neutrophils Absolute Auto 6100 /uL (1500-7000); Neutrophils Percent Auto 54.6 % (50-75); Platelet Count 211 X10^3/uL (150-400); Red Blood Cell Count 5.52 X10^6/uL (4.5-5.9); Red Cell Distribution Width 14.2 % (11.6-14.8); White Blood Cell Count 11.3 X10^3/uL (4.5-11.0)
[2022-06-28 02:55] LABS: Alanine Aminotransferase 19 IU/L (<50); Albumin 4.3 g/dL (3.5-5.0); Albumin Globulin Ratio 1.4 (1.0-2.8); Alkaline Phosphatase 56 U/L (38-126); Aspartate Aminotransferase 23 IU/L (17-59); BUN Creatinine Ratio 13.4 (6-22); Bilirubin Total 0.6 mg/dL (0.2-1.3); Blood Urea Nitrogen 11 mg/dL (9-20); Calcium 8.8 mg/dL (8.4-10.2); Carbon Dioxide 23 mmol/L (22-32); Chloride 104 mmol/L (98-107); Estimated Glomerular Filt Rate > 60 mL/min (>60); Glucose 106 mg/dL (70-100); HEMOLYSIS 18 (0-50); Potassium 3.7 mmol/L (3.4-5.1); Sodium 142 mmol/L (137-145); Total Protein 7.3 g/dL (6.3-8.2)
[2022-06-28 02:57] VITALS: BP 137/83; PULSE 113; RESP 14; O2SAT 95
--- NOTE | 2022-06-28 02:59 | PC.NURSE ---
0259 Patient alert and answering questions appropriately, asking for . arrives at bedside. Patient denies any pain at this point in time. He denies remembering event.
[2022-06-28 04:15] VITALS: BP 138/75; PULSE 82; RESP 14; O2SAT 97
[2022-06-28 05:37] VITALS: BP 142/94; PULSE 75; RESP 16; O2SAT 100
== END 2022-06-28 06:20 | disposition home or self-care (01) ==
PROVIDERS: Emergency Provider Emergency Medicine
DX: R56.9 Unspecified convulsions (principal)
CPT/HCPCS: 70450; 80053; 85025; 93005; 93010; 96360; 96361; 99284

== ENCOUNTER 2023-05-20 12:18 | Emergency (ER) | payer OTHER, MEDICAID, SELFPAY ==
[2021-11-23 08:50] VITALS: RESP 14; O2SAT 98
[2023-05-20 12:23] VITALS: BP 129/84; PULSE 68; RESP 18; TEMP 36.8; O2SAT 98; BMI 27.2
--- NOTE | 2023-05-20 12:36 | ED_ITS ---
HPI - Wound/Laceration <Alex Martinez PA-C - Last Filed: 05/20/23 12:57> General Chief Complaint: Wound/Laceration Stated Complaint: rt knee injury/ laceration Time Seen by Provider: 05/20/23 12:30 Source: patient Mode of arrival: Ambulatory History of Present Illness HPI narrative: This is a 43-year-old male presents emergency department due to a right knee injury after a piece of tile fell on his right knee. Tetanus is up-to-date. Patient states that he was working on some tile when it fell off the wall hit his right knee and was concerned with the laceration uses right knee. He states it was bleeding ?a lot?. Denies any other injuries. Related Data Home Medications Medication Instructions Recorded Confirmed No Known Home Medications 03/23/20 03/23/20 Allergies Allergy/AdvReac Type Severity Reaction Status Date / Time kiwi [KIWI] Allergy Severe THROAT Verified 03/23/20 10:11 SWELLS UP, ALMOST Penicillins [PENICILLINS] Allergy Severe HIVES Verified 03/23/20 10:11 Review of Systems <Alex Martinez PA-C - Last Filed: 05/20/23 12:57> Review of Systems Narrative: GENERAL: Denies chills, fatigue, malaise, fever, sweats. HEENT: Denies sinus pain, ear pain, sore throat, difficulty swallowing, dizziness. RESPIRATORY: Denies dyspnea, cough, wheezing, hemoptysis, sputum. CARDIOVASCULAR: Denies chest pain, palpitations, orthopnea, edema, GASTROINTESTINAL: Denies nausea, vomiting, abdominal pain, diarrhea, constipation, melena. : Denies dysuria, frequency, incontinence, hematuria, urinary retention. MUSCULOSKELETAL: denies weakness, joint pain, or bony pain SKIN: Right knee wound NEUROLOGIC: Denies weakness, headache, numbness, change in speech, confusion, seizures, incoordination. PSYCHIATRIC: No concerning psychosocial issues. 12 point review of systems is negative except for those stated above Patient History <Alex Martinez PA-C - Last Filed: 05/20/23 12:57> Social History marital status: Smoking Status: Never smoker alcohol intake: current substance use type: does not use Smoking Status: Never smoker alcohol intake frequency: 0-2 drinks per day Substance Use Type: does not use Exam <Alex Martinez PA-C - Last Filed: 05/20/23 12:57> Narrative Exam Narrative: GENERAL: Well-developed patient, in mild distress. HEAD: Atraumatic. Normocephalic. EYES: Pupils equal round and reactive. Extraocular motions intact. No scleral icterus. No injection or drainage. ENT: Nose without bleeding, purulent drainage. Throat without erythema, tonsillar hypertrophy or exudate. Airway patent. NECK: Trachea midline. Non tender CARDIOVASCULAR: Regular rate and rhythm without murmurs, gallops, or rubs. RESPIRATORY: Clear to auscultation. Breath sounds equal bilaterally. No wheezes, rales, or rhonchi. GASTROINTESTINAL: Abdomen soft, non-tender, nondistended. EXTREMITIES: No edema or joint tenderness. BACK: Nontender without deformity or crepitance. No flank tenderness. NEURO: AOx3. SKIN: Right knee has a 1.5 cm laceration, with small amounts of visible debris. No surrounding erythema or drainage. Right knee is not tender Initial Vital Signs Initial Vital Signs: Vital Signs Temperature 98.3 F 05/20/23 12:23 Pulse Rate 68 05/20/23 12:23 Respiratory Rate 18 05/20/23 12:23 Blood Pressure 129/84 05/20/23 12:23 Pulse Oximetry 98 05/20/23 12:23 Oxygen Delivery Method Room Air 05/20/23 12:23 <Marcie Cerna DO - Last Filed: 05/21/23 07:51> Initial Vital Signs Initial Vital Signs: Vital Signs Temperature 98.3 F 05/20/23 12:23 Pulse Rate 68 05/20/23 12:23 Respiratory Rate 18 05/20/23 12:23 Blood Pressure 129/84 05/20/23 12:23 Pulse Oximetry 98 05/20/23 12:23 Oxygen Delivery Method Room Air 05/20/23 12:23 Procedures <Alex Martinez PA-C - Last Filed: 05/20/23 12:57> Laceration Repair Laceration 1: Time of procedure: 12:55 Site: lower extremity (Right knee) Size (cm): 1.5 Description: linear Depth: simple, single layer Pre-repair: irrigated extensively Skin layer closed with: dermabond Course <Alex Martinez PA-C - Last Filed: 05/20/23 12:57> Vital Signs Vital signs: Vital Signs - 8 hr 05/20/23 12:23 Temperature 98.3 F Pulse Rate 68 Respiratory Rate 18 Blood Pressure 129/84 Pulse Oximetry 98 Oxygen Delivery Method Room Air <Marcie CernaDO - Last Filed: 05/21/23 07:51> Vital Signs Vital signs: Vital Signs - 8 hr 05/20/23 12:23 Temperature 98.3 F Pulse Rate 68 Respiratory Rate 18 Blood Pressure 129/84 Pulse Oximetry 98 Oxygen Delivery Method Room Air MDM - Wound/Laceration <Alex Martinez PA-C - Last Filed: 05/20/23 12:57> MDM Narrative Medical decision making narrative: MDM * differential diagnosis includes but not limited to laceration, fracture * Prior records reviewed: Patient's history of viral encephalitis. Last seen approximately a year ago for a seizure. History of spinal fractures T12 through L4 which required laminectomy. Also history of bilateral PEs. Was seen for 2 minutes is witnessed seizure. Patient had improved on arrival to the ED and referred to Neurology [facility]. * My lab interpretation: None obtained * My imgaing interpretation: None obtained * Clinical Decision Rules/Scores evaluated: None * Independent discussions with: None ED Course: This is a 43-year-old male presents emergency department due to a small superficial laceration of the right knee. This was closed with Dermabond without complications. There were small amounts of debris in it which were removed using forceps and irrigated extensively. No surrounding tenderness to palpation to the patella and no x-ray ordered. Shared Decision Making: Discussed plan with patient who is comfortable with the plan Social Considerations: None Disposition: Discharged to home Discharge Plan Departure Patient Disposition: Home Clinical Impression: Laceration Instructions: DI for Laceration Repair Activity Restrictions/Additional Instructions: Thank you for coming to the [facility] Emergency Department today. I am glad that we we are able to close the incision without any complications. The Dermabond should wear off over time. I hope you feel better soon. Please follow up with your primary care provider within a week if your symptoms continue. If you do not have a primary care provider please contact the [facility] Resource line at [phone]. They will ask some questions about your medical history and help you get set up with a provider in the community. Prescriptions: No Action No Known Home Medications Stand Alone Forms: Patient Portal/API <Marcie Cerna DO - Last Filed: 05/21/23 07:51> Cosign ED Attending Olivia Attestation: I was immediately available in the department for consultation. Documentation has been reviewed.
== END 2023-05-20 13:05 | disposition home or self-care (01) ==
PROVIDERS: Emergency Provider Physician Assistant Medical
DX: S81.011A Laceration without foreign body, right knee, initial encounter (principal); W22.8XXA Striking against or struck by other objects, initial encounter
CPT/HCPCS: 12001; 99282

== ENCOUNTER 2024-08-10 10:39 | Emergency (ER) | payer OTHER, MEDICAID, SELFPAY ==
[2021-11-23 08:50] VITALS: RESP 14; O2SAT 98
[2024-08-10 10:47] VITALS: PULSE 88; O2SAT 97
[2024-08-10 10:50] VITALS: BP 137/95; PULSE 84; RESP 16; TEMP 36.7; O2SAT 98; BMI 28.7
[2024-08-10 11:21] VITALS: PULSE 86; O2SAT 96
[2024-08-10 11:30] VITALS: PULSE 80; O2SAT 95
--- NOTE | 2024-08-10 12:01 | ED_ITS ---
HPI - Epistaxis <Beatriz Valencia PA-C - Last Filed: 08/10/24 12:39> General Chief complaint: Nasal Problem Stated complaint: bloody nose that wont stop Time Seen by Provider: 08/10/24 11:28 History of Present Illness HPI Narrative: 44-year-old male presents with nose bleeding, he states it 1st happened on July 31 while he was at the gas station. He has been able to get it to stop since then but it began to rebleed today. In the past he has used an ov [id number] nasal tampon as well as some Afrin spray. He denies any use of blood thinners, no aspirin, no regular use of nonsteroidal anti-inflammatories. He is denying any trauma to the nose, no recent illness, he states it all started with a sneeze. He does report having some nosebleeds as a child but nothing requiring surgical intervention. No prior nasal bone fracture. He denies any lightheadedness, nasal pain, he did feel little blood in the back of his throat. A nasal clamp was applied it triaged. All other systems reviewed and are negative. Related Data Home Medications Medication Instructions Recorded Confirmed No Known Home Medications 03/23/20 03/23/20 Allergies Allergy/AdvReac Type Severity Reaction Status Date / Time kiwi [KIWI] Allergy Severe THROAT Verified 03/23/20 10:11 SWELLS UP, ALMOST Penicillins [PENICILLINS] Allergy Severe HIVES Verified 03/23/20 10:11 Review of Systems <Beatriz Valencia PA-C - Last Filed: 08/10/24 12:39> Review of Systems Narrative: All other systems reviewed and are negative. Patient History <Beatriz Valencia PA-C - Last Filed: 08/10/24 12:39> Social History marital status: Smoking Status: Never smoker alcohol intake: current substance use type: does not use Smoking Status: Never smoker alcohol intake frequency: 0-2 drinks per day Substance Use Type: does not use Exam <Beatriz Valencia PA-C - Last Filed: 08/10/24 12:39> Initial Vital Signs Initial Vital Signs: Vital Signs Pulse Rate 88 08/10/24 10:47 Pulse Oximetry 97 08/10/24 10:47 Vital signs reviewed and are normal. Const Other: Smiling, seated, no distress. HENMT Nose: external nose normal, epistaxis (Right anterior nasal septum single bleeding points seen oozing) and No nasal polyp Face and sinus: normal facial exam, sinuses nontender and face symmetric Mouth: oral mucosae normal, lip normal, tongue normal and oropharynx normal HENMT Other: No nasal clots. Old posterior pharyngeal bleeding seen, no clots. Neck Neck: normal visual inspection and full ROM Resp Auscultation: clear to auscultation bilaterally, no rales, no rhonchi and no wheezes Cardio Rate: regular rate Rhythm: regular rhythm <Saadia Scott DO - Last Filed: 08/10/24 17:01> Initial Vital Signs Initial Vital Signs: Vital Signs Pulse Rate 88 08/10/24 10:47 Pulse Oximetry 97 08/10/24 10:47 Procedures <Beatriz Valencia PA-C - Last Filed: 08/10/24 12:39> Epistaxis Control Time of procedure: 12:20 Nostril: right Nose Prepped With: oxymetazoline Direct Inspection: yes Cautery Used: none Complications: other (Cotton-tipped applicator was used to cleanse the blood in the right nare, single bleeding point was seen, currently not bleeding. Afrin was directly applied to the bleeding point as well as additional spray.) Course <Beatriz Valencia PA-C - Last Filed: 08/10/24 12:39> Orders Ordered: Discontinued Medications Oxymetazoline HCl (Oxymetazoline Nasal [place] 30 Ml) 2 sprays NASAL NOW ONE Stop: 08/10/24 12:02 Last Admin: 08/10/24 12:17 Dose: 2 sprays Documented By: CAROLE Vital Signs Vital signs: Vital Signs - 8 hr 08/10/24 10:47 08/10/24 10:50 08/10/24 11:21 Temperature 98.0 F Pulse Rate 88 84 86 Respiratory Rate 16 Blood Pressure 137/95 H Pulse Oximetry 97 98 96 Oxygen Delivery Method Room Air 08/10/24 11:30 08/10/24 12:43 Temperature Pulse Rate 80 78 Respiratory Rate 19 Blood Pressure 130/93 H Pulse Oximetry 95 96 Oxygen Delivery Method Room Air Room Air <Saadia Scott DO - Last Filed: 08/10/24 17:01> Orders Ordered: Discontinued Medications Oxymetazoline HCl (Oxymetazoline Nasal [place] 30 Ml) 2 sprays NASAL NOW ONE Stop: 08/10/24 12:02 Last Admin: 08/10/24 12:17 Dose: 2 sprays Documented By: CAROLE Vital Signs Vital signs: Vital Signs - 8 hr 08/10/24 10:47 08/10/24 10:50 08/10/24 11:21 Temperature 98.0 F Pulse Rate 88 84 86 Respiratory Rate 16 Blood Pressure 137/95 H Pulse Oximetry 97 98 96 Oxygen Delivery Method Room Air 08/10/24 11:30 08/10/24 12:43 Temperature Pulse Rate 80 78 Respiratory Rate 19 Blood Pressure 130/93 H Pulse Oximetry 95 96 Oxygen Delivery Method Room Air Room Air MDM - Epistaxis <Beatriz Valencia PA-C - Last Filed: 08/10/24 12:39> MDM Narrative Medical decision making narrative: Normal vital signs, no clinical findings on examination to warrant lab work. Single bleeding point anterior right nasal septum. Controlled with Afrin and previous direct pressure. Re-evaluated at the time of discharge, there is a small clot formation, it remains intact, 1 mm or so dome shaped. Anterior right nasal septum. No other findings. Vital signs repeated and are normal. Discharge Plan Departure Patient Disposition: Home Clinical Impression: Epistaxis Instructions: DI for Nosebleed Activity Restrictions/Additional Instructions: Avoid touching or rubbing the nose, avoid blowing the nose, you may apply thin layer of Vaseline to keep the tissues moist, please do follow up with your PCP as an ENT referral likely needed with your insurance. I have listed 1 locally that you may contact as well. If it rebleeds, apply direct pressure for at least 15 minutes. [id number] Afrin is helpful, if it requires packing or additional intervention then please return to the emergency department. Prescriptions: No Action No Known Home Medications Referrals: Donnie Haro MD [Physician] - (Recurrent nosebleed anterior right septum) Stand Alone Forms: Patient Portal/API/Survey ED Sign-out <Saadia Scott DO - Last Filed: 08/10/24 17:01> Cosign ED Attending Cosignature Attestation: I was immediately available in the department for consultation.
[2024-08-10] MEDS: OXYMETAZOLINE NASAL SPRAY 30 ML 2 SPRAYS NASAL (12:17)
[2024-08-10 12:43] VITALS: BP 130/93; PULSE 78; RESP 19; O2SAT 96
== END 2024-08-10 12:46 | disposition home or self-care (01) ==
PROVIDERS: Emergency Provider Physician Assistant Medical
DX: R04.0 Epistaxis (principal)
CPT/HCPCS: 30901; 30903; 30905; 99282